=== PATIENT | male | born 1935 | race Hispanic/Latino ===

== ENCOUNTER 2017-07-01 11:38 | Inpatient (IN) | payer MEDICARE, MEDICAID ==
[2017-07-01 12:33] LABS: PTT 29.9 SEC (22.9-36.1); Prothrombin Time 13.1 SEC (12.0-14.7)
[2017-07-01 12:44] LABS: #Lymphocytes 0.8 thou/uL (1.20-3.40); #Monocytes 0.5 thou/uL (0.11-0.59); #Neutrophils 4.5 thou/uL (1.40-6.50); %Basophils 0.4 % (0.0-1.0); %Eosinophils 0.7 % (0.0-10.0); %Lymphocytes 13.1 % (21.0-51.0); %Neutrophils 77.8 % (42.0-75.0); Band 30 % (5-11); Eosinophils 2 % (0-10); Hemoglobin 17.1 g/dL (14.0-18.0); Lymphocytes 16 % (21-51); MDiff Complete? YES; Mean Corpuscular HGB CONC 32.1 g/dL (32.0-36.0); Mean Corpuscular Hemoglobin 29.9 pg (27.0-31.0); Mean Corpuscular Volume 93.2 fl (80.0-94.0); Monocytes 8 % (0-10); Neutrophil 42 % (42-75); PLT Morphology Comment Appears Decreased; Platelet Count 107 thou/uL (130-400); RBC Distribution Width 12.8 % (11.5-14.5); Reactive Lymphocytes 2 % (0-10); Red Blood Cell (RBC) Count 5.74 mill/uL (4.70-6.10); Vacuoles SLIGHT; White Blood Cell (WBC) Count 5.8 thou/uL (4.8-10.8)
[2017-07-01 12:54] LABS: Troponin I Less than 0.010 ng/mL (< 0.028)
[2017-07-01 12:59] LABS: ALT (SGPT) 18 U/L (8-55); AST (SGOT) 34 U/L (5-34); Albumin 3.8 g/dL (3.4-4.8); Alkaline Phosphatase 70 U/L (40-150); Anion Gap 17 mmol/L (10-20); BUN (Urea Nitrogen) 12 mg/dL (8.4-25.7); Bilirubin, Total 0.5 mg/dL (0.2-1.2); CK (CPK) 137 U/L (30-200); Calc. Creatinine Clearance 0 mL/min (70-130); Carbon Dioxide 25 mmol/L (23-31); Chloride 100 mmol/L (98-107); Estimated GFR-MDRD 84; Globulin 3.2 g/dL (2.4-3.5); Glucose 161 mg/dL (83-110); Potassium 4.2 mmol/L (3.5-5.1); Sodium 138 mmol/L (136-145)
--- NOTE | 2017-07-01 13:33 | CT ---
CT OF CERVICAL SPINE PERFORMED WITHOUT CONTRAST ENHANCEMENT: HISTORY: Fell in shower with neck injury. FINDINGS: The vertebral bodies are normal in height. There is disk narrowing at C3-4, C4-5, and C5-6. There a re radiographic changes at DISH. The facets are in normal alignment. Posterior osteophytic changes at C5-6 are not associated with any significant canal narrowing. There is no CT evidence for fractur e. IMPRESSION: No CT evidence of fracture of the cervical spine. POS: [facility]
--- NOTE | 2017-07-01 13:34 | CT ---
CT BRAIN WITHOUT CONTRAST: HISTORY: Fall with confusion. Speech impediment. Possible new onset atrial fibrillation. FINDINGS: No evidence of acute infarct, hemorrhage, midline shift, or abnormal extraaxial fluid collections is seen. The ventricular size is appropriate, and the basilar cisterns are patent. The bony calvarium is intact. There is mucosal disease in the paranasal sinuses. IMPRESSION: No CT evidence of acute intracranial process. Findings were reported, over the telephone, to the ER physician, Dr. Preciado, at 1:25 p.m. CODE NELLY POS: [facility]
--- NOTE | 2017-07-01 14:33 | CT ---
CT CHEST AND ABDOMEN AND PELVIS AND THORACIC AND LUMBAR SPINE PERFORMED WITH INTRAVENOUS CONTRAST ENH ANCEMENT: HISTORY: The patient is status post fall with diffuse pain. FINDINGS: The lungs show bibasilar atelectatic change. No signs of pneumothorax. No rib fractures are identif ied. The thoracic aorta is normal in caliber with no signs of mediastinal hematoma. ABDOMEN: The liver, spleen, and pancreas regions appear unremarkable. The gallbladder is mildly dis tended. The right and left adrenal glands are normal. The right and left kidneys are normal in size . There are hypodensities involving both kidneys, most compatible with cysts. There is no significa nt periaortic or mesenteric adenopathy. No free fluid demonstrated. PELVIS: The bladder is normal in appearance. A left hip prosthesis is noted. No free fluid. Sigmo id diverticulosis is present. No signs of any fractures of the bony pelvic ring. THORACIC SPINE: Arthritic changes are noted without signs of any fracture. LUMBAR SPINE: Degenerative changes of the lumbar spine are present. No compression fractures. IMPRESSION: No acute abnormalities of the chest, abdomen, or pelvis. Other incidental findings as noted above. POS: [facility]
--- NOTE | 2017-07-01 14:51 | CT ---
CT ANGIOGRAM OF THE HEAD: CT ANGIOGRAM OF THE NECK: CT PERFUSION: HISTORY: Confusion. Possible stroke. Multiple falls. COMPARISON: None. TECHNIQUE: A CT angiogram of the head and neck are performed in the axial plane, and three-dimensional reformatt ed images are submitted for interpretation. CT perfusion imaging is performed in the axial plane. FINDINGS: The post contrast head CT demonstrates loss of fernandes white matter differentiation involving the left o ccipital temporal lobe, compatible with a left MCA distribution infarction. There is mild sulcal eff acement. Bilateral globes are intact. Retrobulbar fat is preserved. Symmetric attenuation of the optic nerve s and ocular rectus muscles. There is bilateral ethmoid air cell, left frontal sinus, and left maxillary sinus disease. Adequate mastoid air cell aeration. The aerodigestive tract is patent. No mucosal abnormality. There is mass effect upon the posterior right oral cavity due to medial deviation of the right carotid artery. Effacement of the left piriform sinus is likely due to benign apposition of the mucosa. Non-emergent characterization is warranted. Symmetric attenuation of the sternocleidomastoid muscles. There is bilateral parotid gland atrophy. There is bilateral parotid gland fatty replacement. There is symmetric attenuation of the submandib ular glands. There is an enlarged right level V lymph node, measuring 1.2 x 1.0 cm. The lymph node has a round ap pearance and there is loss of fatty hilum. A malignant lymph node cannot be excluded. The upper mediastinum is unremarkable. The visualized lung apices demonstrate chronic change. Cervical spine vertebral body height is maintained. There is no fracture. There is extensive osteop hyte formation throughout the cervical spine. Evaluation of the contents of the central spinal canal and neural foramina is limited by technique. CT ANGIOGRAM: The aortic arch has appropriate enhancement in luminal diameter. RIGHT CAROTID: The right carotid artery origin has appropriate enhancement and luminal diameter. Th e common carotid artery, carotid bifurcation, and internal carotid artery have appropriate enhancemen t and luminal diameter. LEFT CAROTID: The left carotid artery origin has appropriate enhancement and luminal diameter. The left common carotid artery, carotid bifurcation, and internal carotid artery have appropriate enhance ment and luminal diameter. Bilateral cervical vertebral bodies are patent throughout the course in the neck. Vertebral arteries are essentially co-dominant. CT ANGIOGRAM OF THE HEAD: The distal cervical and intracranial internal carotid arteries have symmet lacy enhancement and luminal diameter. There is symmetric enhancement and luminal diameter of the A1 and M1 segments. The proximal A2 segme nts are symmetric. There are decreased posterior left MCA segments at the level of the third and fou rth branch. The right MCA segments are unremarkable. POSTERIOR CIRCULATION: Limited evaluation of both PICA artery origins. Both vertebral body supply a normal caliber basilar artery. The left and right P1 segments have symmetric enhancement and lumina l diameter. CT PERFUSION: The mean transit time images are suboptimal. There is diffuse increased mean transit time of the cerebrum. there is decreased blood flow and blood volume in the left temporal occipital region, corresponding to the area of loss of fernandes white matter differentiation on the post contrast h ead CT. Given the presence of decreased blood volume, a completed infarct is favored. 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 The results of the study were given to Trish, the nurse in the ER, on 07/01/2017 at 2:06 p.m. CODE NELLY POS: [facility]
[2017-07-01] MEDS ORDERED: Aspirin 300 MG Suppository ONE (15:06)
[2017-07-01] MEDS ORDERED: Diltiazem 125 MG/25 ML ONE (15:25)
[2017-07-01] MEDS ORDERED: Diltiazem HCl 125 MG, Admixture Fee 1 EACH in Sodium Chloride 0.9% 100 ML IVPB SCH (15:45)
--- NOTE | 2017-07-01 16:03 | HP ---
PRIMARY CARE PHYSICIAN: Dr. Cr in [place], [place]. REASON FOR ADMISSION: Left MCA infarct, atrial fibrillation with rapid ventricular response. HISTORY OF PRESENT ILLNESS: An 85-year-old male with a history of hypertension, diabetes ty pe 2, and atrial fibrillation who was brought to emergency room for acute onset of altered mental sta tus. This patient was seen last normal as per paramedics at 09:20 a.m. Family member reports that he was in shower and after that he fell down and he injured his head with countertop and after that he becam e confused. Paramedics were called and they suspected stroke and that is why patient came to the ER via air ambulance at 11:40 a.m. At that time, stroke alert was initiated, but at the same time in the emergency room, another emergen cy was going on with cold blue and patient initially did not able to provide any history and there wa s history of missing lot of information and that is why trauma workup initiated. The patient had CT cervical spine, CT chest, abdomen, and pelvis which were unremarkable. CT brain was also unremarkabl e and subsequently CT brain perfusion study was done which showed left MCA territory infarct. During this period, patient was out of window period for tPA. Whenever result was obtained for left MCA in farct, patient was not a candidate for any TAYLOR procedure as per Dr. Herman. We still do not have any more information about whether patient is taking chronically anticoagulant t herapy or not. The patient's son was present when I saw this patient in the emergency room. At that time, the patient was having atrial fibrillation with RVR. Initially, he was given Cardizem bolus a nd after that rate was under control, but his heart rate was very labile in the emergency room. Patient was moving all 4 limbs. He initially drank liquids, but subsequently patient refusing to dri nk. He was having difficulty comprehending. He is Faroese-speaking only and that is also limiting e xamination. At this point, patient's Carlos coma score is 14. He appeared to be confused, though h e is moving all 4 limbs. REVIEW OF SYSTEMS: Unfortunately, patient is Faroese-speaking only and patient currently confused an d that is why I tried to review all review of systems with him, but unable to review because of disor ientation and confusion. ALLERGIES: No known drug allergies. CURRENT HOME MEDICATIONS: The patient does not have any medication with him at this point and robert t and family member does not know the name of medication, so unable to review at this point. PAST MEDICAL HISTORY: Atrial fibrillation, diabetes type 2, hypertension, dyslipidemia. PAST SURGICAL HISTORY: History of right hip replacement. PAST PSYCHIATRIC HISTORY: Reviewed and negative. SOCIAL HISTORY: Patient is and lives at home with . No history of smoking, but he drink s alcohol socially. He denies any other illicit drug abuse. FAMILY HISTORY: No strong family history of premature coronary artery disease, stroke or cancer. ALLERGIES: No known drug allergies. EMERGENCY ROOM COURSE: Patient is given Cardizem bolus and Cardizem drip was started, aspirin 324 mg given. PHYSICAL EXAMINATION: VITAL SIGNS: Currently, blood pressure 203/151 and after that Cardizem bolus given and blood pressur e dropped to 179/97, pulse 110-120 irregular, respiratory rate 20, saturation 96% on room air, temper ature 97.8, weight 86.1 kilograms. GENERAL: The patient is currently awake. Follows only simple commands, but appears confused, no obv ious acute distress. HEAD: Normocephalic, atraumatic. EYES: Pupils round, reactive to light. Extraocular muscle intact. ENT: Oropharynx within normal limits. Moist mucous membranes. No oral lesions. No pharyngeal eryt macrina, no exudate. Patient has 1 cm mild laceration over right ear. NECK: Supple. Range of motion is normal. No meningeal signs of irritation, no JVD, no thyromegaly, no carotid bruit. LUNGS: Clear to auscultation without any rhonchi or rales. CARDIAC: S1, S2 irregularly irregular. No murmur elicited, no gallop, no rub. ABDOMEN: Soft, bowel sounds present, nontender, nondistended. No organomegaly, no mass, no suprapub ic tenderness. BACK: Examination unremarkable, no CVA tenderness. EXTREMITIES: Upper extremity: Patient is moving spontaneously all 4 limbs. Lower extremity; patien mukesh is moving all four limbs. No edema, good peripheral pulsation. SKIN: No skin rash. HEMATOLOGICAL SYSTEM: No lymphadenopathy. NEUROLOGIC: The patient is grossly moving all four limbs, but he appears disoriented and confused. He does not follow all the commands consistently and it is very difficult to perform neurological exa mination, but I think this patient has comprehension problem, but he does not have any focal motor we akness. IMAGING DATA AND SIGNIFICANT LABORATORY DATA: 1. EKG showing atrial fibrillation with rapid ventricular response, nonspecific ST-T changes. 2. CBC: WBC 5.8, hemoglobin 17.1, MCV 93.2, platelet 107, INR 1.0. 3. BMP: Sodium 138, potassium 4.2, chloride 100, carbon dioxide 25, anion gap 17, BUN 12, creatinin e 0.87, glucose 161, calcium 9.0, lactic acid 2.3. 4. LFT: AST 34, ALT 18, alkaline phosphatase 70, albumin 3.8, CK 137, CK-MB 3.0, troponin I less th an 0.010, BNP 68.9. 5. CT brain perfusion study showing left MCA distribution infarction in the left temporal occipital region. 6. CT brain based on my review, no acute intracranial process. 7. CT cervical spine based on my review, no CT evidence of fracture or dislocation. 8. CT chest, abdomen, and pelvis showing bibasilar atelectasis, gallbladder mildly distended, renal cyst, arthritic changes of thoracic and lumbar spine. ASSESSMENT AND PLAN/IMPRESSION: 1. 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 Patient is at high risk for stroke from atrial fibrillation because of his history of hype rtension, diabetes, and his age. At this point, patient will be admitted to stroke floor. Entire [facility] team will be consulted. Neurology will be consulted. Patient will need aspirin 325 mg p.o. torrie ly or 300 mg rectally. We will also continue with Lovenox 1 mg per kg for atrial fibrillation. For stroke workup, we will do MRI brain and echocardiography. We will check lipid profile, homocysteine, urine drug screen. We will start Lipitor 40 mg p.o. at bedtime. We will monitor on stroke floor an d we will consult rehabilitation for inpatient rehabilitation. PT, OT, speech will be consulted. 2. Atrial fibrillation with rapid ventricular response. We will start Cardizem drip at 5 mg per bunny r. We will obtain echocardiography. We will do serial cardiac enzymes to rule out acute coronary sy ndrome. Cardiology will be consulted. We will continue with Lovenox 1 mg per kg subcutaneous twice daily. 3. Hypertensive urgency. We will use hydralazine and labetalol p.r.n. basis for blood pressure cont rol. We will obtain patient's home medication and resume patient's home medication. 4. Thrombocytopenia. We will monitor platelet count. 5. Diabetes type 2. We will continue with Accu-Chek a.c. and at bedtime and insulin as per sliding scale per protocol. Diabetic diet will be given. 6. Dyslipidemia. Check lipid profile and start Lipitor 40 mg p.o. at bedtime. 7. Deep venous thrombosis prophylaxis. Patient is already on full dose of Lovenox therapy. 8. Gastrointestinal prophylaxis. Pepcid 20 mg IV b.i.d. 9. Code status: The patient is FULL CODE. The patient's is surrogate decision maker. Disposition plan based on clinical course. We are expecting patient's stay in the hospital more than 2 midnights. Plan of care discussed with the patient and family member at bedside in the emergency room.
[2017-07-01] MEDS ORDERED: ISOVUE-370 76%-LOCM 1 ML ONE (16:56)
[2017-07-01] MEDS ORDERED: Mag-Al 1200 mg/1200 mg/30 ML UDCUP PO PRN (17:23)
[2017-07-01] MEDS ORDERED: HYDROcodone/Acetaminophen 5/325 mg Tablet PO PRN (17:23)
[2017-07-01] MEDS ORDERED: Dextrose 50% Abboject 50 ML SYRINGE SLOW IVP PRN (17:23)
[2017-07-01] MEDS ORDERED: Loratadine 10 MG TAB PO PRN (17:23)
[2017-07-01] MEDS ORDERED: Milk Of Magnesia 30 ML UDCUP PO PRN (17:23)
[2017-07-01] MEDS ORDERED: Senokot 8.6 MG TAB PO PRN (17:23)
[2017-07-01] MEDS ORDERED: Sodium Chloride 0.65% Nasal 44 ML BOT EA NARE PRN (17:23)
[2017-07-01] MEDS ORDERED: HumaLOG 300 UNITS/3 ML VIAL SC PRN ×2 (17:23)
[2017-07-01] MEDS ORDERED: Nitroglycerin 0.4 MG TAB (25 Tab Bottle) SL PRN (17:23)
[2017-07-01] MEDS ORDERED: Loperamide HCl 2 MG CAP PO PRN (17:23)
[2017-07-01] MEDS ORDERED: Ondansetron HCl/PF 4 MG/2 ML Vial IVP PRN (17:23)
[2017-07-01] MEDS ORDERED: hydrALAZINE 20 MG/ML VIAL SLOW IVP PRN (17:23)
[2017-07-01] MEDS ORDERED: Acetaminophen 325 MG TAB PO PRN (17:23)
[2017-07-01] MEDS ORDERED: Eucerin (Mineral Oil/Petrolatum,White) 30 gm Jar TOP PRN (17:23)
[2017-07-01] MEDS ORDERED: Zolpidem Tartrate 5 MG TAB PO PRN (17:23)
[2017-07-01] MEDS ORDERED: Ondansetron ODT 4 MG TAB PO PRN (17:23)
[2017-07-01] MEDS ORDERED: Dextrose 5% in Water 1,000 ML IV PRN (17:23)
[2017-07-01] MEDS ORDERED: Artificial Tears 18 DROP/0.9 ML EA EYE PRN (17:23)
[2017-07-01] MEDS ORDERED: Diltiazem 125 MG in Sodium Chloride 0.9% 100 ML IVPB SCH (17:23)
[2017-07-01] MEDS ORDERED: Labetalol HCl 100 MG/20 ML VIAL SLOW IVP PRN (17:23)
[2017-07-01] MEDS ORDERED: Chloraseptic Spray 180 ml Bottle PO PRN (17:23)
[2017-07-01 17:25] VITALS: BMI 27.1
[2017-07-01] MEDS ORDERED: Atorvastatin Calcium 40 MG TAB PO SCH (21:00)
[2017-07-01] MEDS: Famotidine/PF 20 mg/2ml Vial SLOW IVP SCH (21:14)
[2017-07-01] MEDS: Enoxaparin Sodium 80 MG/0.8 ML SYRINGE SC SCH (22:33)
[2017-07-02 05:51] LABS: #Monocytes 0.7 thou/uL (0.11-0.59); %Eosinophils 0.1 % (0.0-10.0); %Lymphocytes 12.3 % (21.0-51.0); %Monocytes 8.9 % (0.0-10.0); %Neutrophils 78.6 % (42.0-75.0); Hemoglobin 16.8 g/dL (14.0-18.0); INR-International Normal Ratio 1.1; Mean Corpuscular HGB CONC 32.7 g/dL (32.0-36.0); Mean Corpuscular Hemoglobin 30.2 pg (27.0-31.0); Mean Corpuscular Volume 92.1 fl (80.0-94.0); Mean Platelet Volume 9.4 fL (7.4-10.4); Platelet Count 101 thou/uL (130-400); Prothrombin Time 14.1 SEC (12.0-14.7); RBC Distribution Width 12.6 % (11.5-14.5); Red Blood Cell (RBC) Count 5.59 mill/uL (4.70-6.10); White Blood Cell (WBC) Count 7.7 thou/uL (4.8-10.8)
[2017-07-02 05:55] LABS: ALT (SGPT) 14 U/L (8-55); AST (SGOT) 24 U/L (5-34); Albumin 3.4 g/dL (3.4-4.8); Alkaline Phosphatase 61 U/L (40-150); Anion Gap 18 mmol/L (10-20); BUN (Urea Nitrogen) 12 mg/dL (8.4-25.7); Bilirubin, Total 0.6 mg/dL (0.2-1.2); Calc. Creatinine Clearance 97 mL/min (70-130); Carbon Dioxide 22 mmol/L (23-31); Cardiac Risk 3.7 (Less than 4.5); Chloride 101 mmol/L (98-107); Cholesterol 165 mg/dl (< 200 Desired); Estimated GFR-MDRD Greater than 90; Globulin 3.1 g/dL (2.4-3.5); Glucose 138 mg/dL (83-110); HDL Cholesterol 45 mg/dL (>60 Neg Risk); LDL Cholesterol, Calculated 88 mg/dL; Potassium 3.4 mmol/L (3.5-5.1); Protein, Total 6.5 g/dL (5.8-8.1); Sodium 138 mmol/L (136-145); Triglycerides 161 mg/dL (Less than 150)
[2017-07-02 06:13] LABS: Syphilis Antibody Nonreactive (Nonreactive); Syphilis Antibody Index 0.05 S/CO (<1.00 Non-Reactive)
[2017-07-02] MEDS ORDERED: Potassium Chloride 20 MEQ TAB PO SCH (07:00)
[2017-07-02] MEDS: Finasteride 5 MG TAB PO SCH (08:52)
[2017-07-02] MEDS: metFORMIN 500 MG TAB PO SCH ×2 (08:52→21:41)
[2017-07-02] MEDS: Gabapentin 100 MG CAP PO SCH ×3 (08:52→21:26)
[2017-07-02] MEDS: Lisinopril 5 MG TAB PO SCH (08:52)
[2017-07-02] MEDS: Enoxaparin Sodium 80 MG/0.8 ML SYRINGE SC SCH (08:52)
[2017-07-02] MEDS: Tamsulosin HCl 0.4 MG CAP PO SCH (08:52)
[2017-07-02] MEDS: Glimepiride 2 MG TAB PO SCH (08:52)
[2017-07-02] MEDS: Famotidine/PF 20 mg/2ml Vial SLOW IVP SCH ×2 (08:53→21:26)
[2017-07-02] MEDS ORDERED: Atenolol 25 MG TAB PO SCH (09:00)
[2017-07-02] MEDS ORDERED: Calcium Carbonate 500 MG ChewTAB PO PRN (09:00)
[2017-07-02] MEDS ORDERED: FLU VACC TS2017-18 (>65YR) 0.5 ML SYRINGE IM ONE (09:00)
[2017-07-02] MEDS ORDERED: Aspirin 300 MG Suppository PR SCH (09:00)
[2017-07-02] MEDS ORDERED: Aspirin 325 MG TAB PO SCH (09:00)
--- NOTE | 2017-07-02 10:41 | MRI ---
MRI BRAIN WITHOUT CONTRAST: HISTORY: CVA. FINDINGS: There is restricted diffusion in the left posterior [id number]-xpdejcoxa region, in the MCA te rritory, consistent with an acute infarction. The ventricular size is appropriate, and the basilar c isterns are patent. No hemorrhage, midline shift, or abnormal extraaxial fluid collections are seen. There is mucosal disease in the paranasal sinuses. IMPRESSION: Acute left middle cerebral artery infarction. POS: [facility]
--- NOTE | 2017-07-02 10:55 | PDOC.PN ---
- Subjective Encounter Start Date: 07/02/17 Encounter Start Time: 07:15 -: old records requested/rev Patient seen and examined. No new complaints. No overnight events pt has word difficulty word finding - Objective Resuscitation Status: Resuscitation Status FULL:Full Resuscitation MAR Reviewed: Yes Vital Signs & Weight: Vital Signs (12 hours) Temp Pulse Resp BP Pulse Ox 07/02/17 08:52 90 07/02/17 08:51 90 07/02/17 07:30 97.6 F 93 18 147/99 H 93 L 07/02/17 04:00 97.5 F L 90 16 160/101 H 96 07/02/17 00:00 98.4 F 93 14 151/100 H 95 Weight Weight 189 lb I&O: 07/01/17 07/02/17 07/03/17 06:59 06:59 06:59 Intake Total 130 Balance 130 Result Diagrams: 07/02/17 04:47 07/02/17 04:47 Additional Labs: Accuchecks 07/02/17 07/01/17 04:47 21:54 POC Glucose 129 H 110 Radiology Reviewed by me: Yes (MRI- left MCA CVA) EKG Reviewed by me: Yes (afib) Phys Exam - Physical Examination Constitutional: NAD HEENT: PERRLA, moist MMs, sclera anicteric Neck: no JVD, supple Respiratory: no wheezing, no rales, no rhonchi Cardiovascular: no significant murmur, irregular Gastrointestinal: soft, non-tender, no distention, positive bowel sounds Musculoskeletal: no edema, pulses present Neurological: non-focal, normal sensation speech problem Psychiatric: normal affect, A&O x 3 Skin: no rash, normal turgor Dx/Plan (1) Acute ischemic left middle cerebral artery (MCA) stroke Code(s): I63.512 - CEREB INFRC D/T UNSP OCCLS OR STENOS OF LEFT MID CEREB ART Status: Acute (2) Atrial fibrillation with RVR Code(s): I48.91 - UNSPECIFIED ATRIAL FIBRILLATION Status: Acute Comment: rate controlled (3) Hypokalemia Code(s): E87.6 - HYPOKALEMIA Status: Acute (4) BPH (benign prostatic hyperplasia) Code(s): N40.0 - BENIGN PROSTATIC HYPERPLASIA WITHOUT LOWER URINRY TRACT SYMP Status: Chronic (5) Diabetes type 2, controlled Code(s): E11.9 - TYPE 2 DIABETES MELLITUS WITHOUT COMPLICATIONS Status: Chronic (6) Dyslipidemia Code(s): E78.5 - HYPERLIPIDEMIA, UNSPECIFIED Status: Chronic (7) GERD (gastroesophageal reflux disease) Code(s): K21.9 - GASTRO-ESOPHAGEAL REFLUX DISEASE WITHOUT ESOPHAGITIS Status: Chronic (8) Hypertension Code(s): I10 - ESSENTIAL (PRIMARY) HYPERTENSION Status: Chronic (9) Hypertensive urgency Code(s): I16.0 - HYPERTENSIVE URGENCY Status: Resolved - Plan cont current plan of care, plan discussed w/ family, PT/OT, speech therapy * continue cardizem drip for rate control * continue aspirin, lovenox * restart selected home medication * medication reviewed as below * symptomatic treatment * stroke team. Review of Systems - Review of Systems Constitutional: negative: fever, chills, sweats, weakness, malaise, other Eyes: negative: Pain, Vision Change, Conjunctivae Inflammation, Eyelid Inflammation, Redness, Other ENT: negative: Ear Pain, Ear Discharge, Nose Pain, Nose Discharge, Nose Congestion, Mouth Pain, Mouth Swelling, Throat Pain, Throat Swelling, Other Respiratory: negative: Cough, Dry, Shortness of Breath, Hemoptysis, SOB with Excertion, Pleuritic Pain, Sputum, Wheezing Cardiovascular: negative: chest pain, palpitations, orthopnea, paroxysmal nocturnal dyspnea, edema, light headedness, other Gastrointestinal: negative: Nausea, Vomiting, Abdominal Pain, Diarrhea, Constipation, Melena, Hematochezia, Other Genitourinary: negative: Dysuria, Frequency, Incontinence, Hematuria, Retention , Other Musculoskeletal: negative: Neck Pain, Shoulder Pain, Arm Pain, Back Pain, Hand Pain, Leg Pain, Foot Pain, Other Skin: negative: Rash, Lesions, Sreedhar, Bruising, Other Neurological: Change in Speech. negative: Weakness, Numbness, Incoordination, Confusion, Seizures, Other - Medications/Allergies Allergies/Adverse Reactions: Allergies Allergy/AdvReac Type Severity Reaction Status Date / Time No Known Allergies Allergy Unverified 07/01/17 15:30 Medications: Current Medications Acetaminophen (Tylenol) 650 mg PO Q4H PRN PRN Reason: Headache/Fever or Pain Hydrocodone Bitart/Acetaminophen ([place] 5/325) 1 tab PO Q4H PRN PRN Reason: Moderate Pain (4-6) Al Hydroxide/Mg Hydroxide (Maalox) 30 ml PO Q6H PRN PRN Reason: Heartburn or Indigestion Artificial Tears (Tears Naturale) 0 drop EA EYE PRN PRN PRN Reason: Dry Eyes Aspirin (Aspirin) 300 mg MI DAILY [facility] Last Admin: 07/02/17 08:53 Dose: Not Given Aspirin (Aspirin) 325 mg PO DAILY [facility] Last Admin: 07/02/17 08:52 Dose: 325 mg Atenolol (Tenormin) 25 mg PO DAILY [facility] Last Admin: 07/02/17 08:51 Dose: 25 mg Calcium Carbonate (Tums) 1,000 mg PO [facility] PRN PRN Reason: HEARTBURN OR INDIGESTION Dextrose/Water (Dextrose 50%) 25 gm SLOW IVP PRN PRN PRN Reason: Hypoglycemia Enoxaparin Sodium (Lovenox) 80 mg SC 0900,2100 [facility] Last Admin: 07/02/17 08:52 Dose: 80 mg Famotidine (Pepcid) 20 mg SLOW IVP Q12HR [facility] Last Admin: 07/02/17 08:53 Dose: 20 mg Finasteride (Proscar) 5 mg PO DAILY [facility] Last Admin: 07/02/17 08:52 Dose: 5 mg Gabapentin (Neurontin) 100 mg PO TID [facility] Last Admin: 07/02/17 08:52 Dose: 100 mg Glimepiride (Amaryl) 2 mg PO QAM[facility] Last Admin: 07/02/17 08:52 Dose: 2 mg Glucagon (Glucagon) 1 mg IM PRN PRN PRN Reason: Hypoglycemia Guaifenesin (Robitussin Sf) 200 mg PO Q4H PRN PRN Reason: Cough Hydralazine HCl (Apresoline) 10 mg SLOW IVP Q4H PRN PRN Reason: BP > 220/110 Dextrose/Water (D5w) 1,000 mls @ 0 mls/hr IV .Q0M PRN; As Directed PRN Reason: Hypoglycemia Diltiazem HCl 125 mg/ Sodium (Chloride) 125 mls @ 5 mls/hr IVPB INF BLAKE; 5 MG/ HR PRN Reason: Protocol Insulin Human Lispro (Humalog) 0 units SC .MODERATE SLIDING SC PRN PRN Reason: Moderate Correctional Scale Insulin Human Lispro (Humalog) 0 units SC .BEDTIME SLIDING SC PRN PRN Reason: Bedtime Correctional Scale Labetalol HCl (Normodyne) 20 mg SLOW IVP Q1H PRN PRN Reason: BP > 220/110 Lisinopril (Zestril) 5 mg PO DAILY [facility] Last Admin: 07/02/17 08:52 Dose: 5 mg Loperamide HCl (Imodium) 2 mg PO PRN PRN PRN Reason: Diarrhea/Loose Stools Loratadine (Claritin) 10 mg PO DAILYPRN PRN PRN Reason: Sinus Symptoms Magnesium Hydroxide (Milk Of Magnesium) 30 ml PO DAILYPRN PRN PRN Reason: Constipation Metformin HCl (Glucophage) 1,000 mg PO BID [facility] Last Admin: 07/02/17 08:52 Dose: 1,000 mg Mineral Oil/White Petrolatum (Eucerin Cream) 0 gm TOP BIDPRN PRN PRN Reason: Dry Skin Nitroglycerin (Nitrostat) 0.4 mg SL Q5MIN PRN PRN Reason: Chest Pain Ondansetron HCl (Zofran Odt) 4 mg PO Q6H PRN PRN Reason: Nausea/Vomiting Ondansetron HCl (Zofran) 4 mg IVP Q6H PRN PRN Reason: Nausea/Vomiting (Dapagliflozin Propanediol [Farxiga ] 10 Mg) Hm Med 0 each PO QAM [facility] Phenol (Chloraseptic [place] 180 Ml Bot) 0 ml PO PRN PRN PRN Reason: Sore Throat Rosuvastatin Calcium (Crestor) 10 mg PO DAILY [facility] Last Admin: 07/02/17 08:52 Dose: 10 mg Senna (Senokot) 2 tab PO HSPRN PRN PRN Reason: Constipation Sodium Chloride (Glynn Nasal [place] 0.65%) 0 ml EA NARE QIDPRN PRN PRN Reason: Nasal Congestion Tamsulosin HCl (Flomax) 0.4 mg PO DAILY [facility] Last Admin: 07/02/17 08:52 Dose: 0.4 mg Zolpidem Tartrate (Ambien) 5 mg PO HSPRN PRN PRN Reason: Insomnia
--- NOTE | 2017-07-02 12:10 | CON ---
DATE OF CONSULTATION: 07/02/2017 CONSULTING PHYSICIAN: Hospitalist Service. IMPRESSION: 1. 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 2. History of atrial fibrillation. 3. History of hyperlipidemia. 4. Diabetes. PLAN: 1. Consult Cardiology as to management of atrial fibrillation. 2. Anticoagulation of their choice. Mr. Ornelas is an elderly gentleman with the above noted medical problems. He presented with difficu lty speaking. His MRI of the brain revealed an acute area of ischemic change in the posterior divisi on of the left middle cerebral artery territory. He has no past history of TIA. He is uncertain as to whether he is compliant with his medication. 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 His CTA did not reveal any evidence of stenosis of the carotid arteries. His laboratory studies w ere otherwise unremarkable. PAST MEDICAL HISTORY: As listed above. ALLERGIES: None. SOCIAL HISTORY: No tobacco or alcohol use. FAMILY HISTORY: Noncontributory. REVIEW OF SYSTEMS: Unobtainable due to his language difficulties. PHYSICAL EXAMINATION: GENERAL: He is a well-nourished elderly gentleman sitting in bed, in no distress. VITAL SIGNS: Blood pressure 147/99, pulse 93, respirations 18, and temperature 97.6. HEENT: Pupils equal and reactive. Conjunctivae clear. Oropharynx clear. EXTREMITIES: No cyanosis, clubbing, or edema. NEUROLOGIC: He was alert, but had difficulty comprehending simple commands. He had very limited trish bal output. His face appeared to be symmetric. He had good regional extension service specialist strength bilaterally. There was no fix or drift. Sensation was grossly intact. Gait was not tested. No abnormal movements were seen. EKG shows a sinus rhythm. SUMMARY: Elderly man with a history of atrial fibrillation with the area of infarct is fairly common , only involved in a cardioembolic event. His echocardiogram is pending. I would suggest Cardiology weigh in on the case. I would be happy to follow in his care.
[2017-07-02] MEDS ORDERED: Enoxaparin Sodium 80 MG/0.8 ML SYRINGE SC SCH (20:30)
[2017-07-02] MEDS ORDERED: Apixaban 5 MG TAB PO SCH (21:00)
--- NOTE | 2017-07-03 00:16 | CON ---
DATE OF CONSULTATION: 07/02/2017 HISTORY OF PRESENT ILLNESS: Mr. Ornelas is an 85-year-old gentleman with a history of atrial fibrill ation, who had an embolic stroke. Mr. Ornelas has a long history of atrial fibrillation according to his family. He said he was on blo od thinners previously, but for unclear reasons he was taken off the blood thinner. Family does nallely mber that he had quite a bit of bruising. The patient was admitted to the hospital on this occasion with sudden onset of altered mental status. It was noted that he had an MRI of his brain, which revealed acute ischemia in the posterior divisi on of the left middle cerebral artery territory. The patient is recovering well fortunately. PAST MEDICAL HISTORY: Atrial fibrillation. MEDICATIONS: He was on aspirin, he was not on any other blood thinners, also on lisinopril. FAMILY HISTORY: Noncontributory. REVIEW OF SYSTEMS: Per chart, initially unobtainable due to language difficulties. The family indic ates he had been doing well prior to this episode. MEDICATIONS: He was taken; 1. Rosuvastatin. 2. Gabapentin. 3. Omeprazole. 4. Glimepiride. 5. Atenolol. 6. Tamsulosin. 7. Lisinopril. PHYSICAL EXAMINATION: GENERAL: This is a pleasant elderly gentleman, in no distress, feels much better now. He is moving all extremities. VITAL SIGNS: Blood pressure 116/74, pulse 88 and irregular. LUNGS: Clear. CARDIOVASCULAR: Irregularly irregular. ABDOMEN: Soft, nontender. EXTREMITIES: No clubbing, no cyanosis. There is no edema. SKIN: Warm and dry. PSYCHIATRIC: Family says he is answering questions appropriately. IMAGING: EKG reveals atrial fibrillation. Echocardiogram showed normal left ventricular function. ASSESSMENT: 1. 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 2. Diabetes. 3. Hypertension. PLAN: 1. Stop Atenolol. 2. Changed to Cardizem; it seems to control his heart rate better, CD 180 mg a day. 3. Stop aspirin. 4. Transition from Lovenox to Eliquis 5 mg twice a day. 5. From my standpoint, could be released home tomorrow to see me in the office in 3-4 weeks. Also, needs to follow up with his primary care physician.
--- NOTE | 2017-07-03 09:26 | PDOC.PN ---
- Subjective Encounter Start Date: 07/03/17 Encounter Start Time: 06:10 Patient seen and examined. No new complaints. No overnight events - Objective Resuscitation Status: Resuscitation Status FULL:Full Resuscitation MAR Reviewed: Yes Vital Signs & Weight: Vital Signs (12 hours) Temp Pulse Resp BP Pulse Ox 07/03/17 07:35 97.7 F 82 16 133/79 95 07/03/17 04:59 96.3 F L 80 18 119/72 93 L 07/03/17 00:58 96.1 F L 78 20 109/74 97 Weight Weight 186 lb 3.2 oz I&O: 07/02/17 07/03/17 07/04/17 06:59 06:59 06:59 Intake Total 130 50 Balance 130 50 Result Diagrams: 07/02/17 04:47 07/02/17 04:47 Additional Labs: Accuchecks 07/03/17 07/02/17 05:55 20:42 POC Glucose 130 H 177 H Radiology Reviewed by me: Yes (echo-normal ef) EKG Reviewed by me: Yes (afib) Phys Exam - Physical Examination Constitutional: NAD HEENT: PERRLA, moist MMs, sclera anicteric Neck: no JVD, supple Respiratory: no wheezing, no rales, no rhonchi Cardiovascular: no significant murmur, no rub, irregular Gastrointestinal: soft, non-tender, no distention, positive bowel sounds Musculoskeletal: no edema, pulses present Neurological: non-focal, normal sensation, moves all 4 limbs expressive aphasia Lymphatic: no nodes Psychiatric: normal affect, A&O x 3 Skin: no rash, normal turgor Dx/Plan (1) Acute ischemic left middle cerebral artery (MCA) stroke Code(s): I63.512 - CEREB INFRC D/T UNSP OCCLS OR STENOS OF LEFT MID CEREB ART Status: Acute (2) Atrial fibrillation with RVR Code(s): I48.91 - UNSPECIFIED ATRIAL FIBRILLATION Status: Acute Comment: rate controlled (3) Hypokalemia Code(s): E87.6 - HYPOKALEMIA Status: Acute (4) BPH (benign prostatic hyperplasia) Code(s): N40.0 - BENIGN PROSTATIC HYPERPLASIA WITHOUT LOWER URINRY TRACT SYMP Status: Chronic (5) Diabetes type 2, controlled Code(s): E11.9 - TYPE 2 DIABETES MELLITUS WITHOUT COMPLICATIONS Status: Chronic (6) Dyslipidemia Code(s): E78.5 - HYPERLIPIDEMIA, UNSPECIFIED Status: Chronic (7) GERD (gastroesophageal reflux disease) Code(s): K21.9 - GASTRO-ESOPHAGEAL REFLUX DISEASE WITHOUT ESOPHAGITIS Status: Chronic (8) Hypertension Code(s): I10 - ESSENTIAL (PRIMARY) HYPERTENSION Status: Chronic (9) Hypertensive urgency Code(s): I16.0 - HYPERTENSIVE URGENCY Status: Resolved - Plan cont current plan of care, plan discussed w/ family, PT/OT, social group worker, speech therapy * start cardizem cd po today * dc cardizem drilp later today * family wants to dc to rehab * medication reviewed as below * symptomatic treatment * continue eliquis * rehab decision pending. Review of Systems - Review of Systems ENT: negative: Ear Pain, Ear Discharge, Nose Pain, Nose Discharge, Nose Congestion, Mouth Pain, Mouth Swelling, Throat Pain, Throat Swelling, Other Respiratory: negative: Cough, Dry, Shortness of Breath, Hemoptysis, SOB with Excertion, Pleuritic Pain, Sputum, Wheezing Cardiovascular: negative: chest pain, palpitations, orthopnea, paroxysmal nocturnal dyspnea, edema, light headedness, other Gastrointestinal: negative: Nausea, Vomiting, Abdominal Pain, Diarrhea, Constipation, Melena, Hematochezia, Other Genitourinary: negative: Dysuria, Frequency, Incontinence, Hematuria, Retention , Other Musculoskeletal: negative: Neck Pain, Shoulder Pain, Arm Pain, Back Pain, Hand Pain, Leg Pain, Foot Pain, Other Skin: negative: Rash, Lesions, Sreedhar, Bruising, Other Neurological: Change in Speech. negative: Weakness, Numbness, Incoordination, Confusion, Seizures, Other - Medications/Allergies Allergies/Adverse Reactions: Allergies Allergy/AdvReac Type Severity Reaction Status Date / Time No Known Allergies Allergy Unverified 07/01/17 15:30 Medications: Current Medications Acetaminophen (Tylenol) 650 mg PO Q4H PRN PRN Reason: Headache/Fever or Pain Hydrocodone Bitart/Acetaminophen ([place] 5/325) 1 tab PO Q4H PRN PRN Reason: Moderate Pain (4-6) Al Hydroxide/Mg Hydroxide (Maalox) 30 ml PO Q6H PRN PRN Reason: Heartburn or Indigestion Apixaban (Eliquis) 5 mg PO BID [facility] Artificial Tears (Tears Naturale) 0 drop EA EYE PRN PRN PRN Reason: Dry Eyes Calcium Carbonate (Tums) 1,000 mg PO PCHS PRN PRN Reason: HEARTBURN OR INDIGESTION Dextrose/Water (Dextrose 50%) 25 gm SLOW IVP PRN PRN PRN Reason: Hypoglycemia Diltiazem HCl (Cardizem Cd) 180 mg PO DAILY [facility] Famotidine (Pepcid) 20 mg SLOW IVP Q12HR [facility] Last Admin: 07/02/17 21:26 Dose: 20 mg Finasteride (Proscar) 5 mg PO DAILY [facility] Last Admin: 07/02/17 08:52 Dose: 5 mg Gabapentin (Neurontin) 100 mg PO TID [facility] Last Admin: 07/02/17 21:26 Dose: 100 mg Glimepiride (Amaryl) 2 mg PO QA-[facility] Last Admin: 07/02/17 08:52 Dose: 2 mg Glucagon (Glucagon) 1 mg IM PRN PRN PRN Reason: Hypoglycemia Guaifenesin (Robitussin Sf) 200 mg PO Q4H PRN PRN Reason: Cough Hydralazine HCl (Apresoline) 10 mg SLOW IVP Q4H PRN PRN Reason: BP > 220/110 Dextrose/Water (D5w) 1,000 mls @ 0 mls/hr IV .Q0M PRN; As Directed PRN Reason: Hypoglycemia Diltiazem HCl 125 mg/ Sodium (Chloride) 125 mls @ 5 mls/hr IVPB INF [facility]; 5 MG/ HR PRN Reason: Protocol Stop: 07/03/17 10:00 Last Admin: 07/02/17 11:33 Dose: 125 mls Insulin Human Lispro (Humalog) 0 units SC .MODERATE SLIDING SC PRN PRN Reason: Moderate Correctional Scale Insulin Human Lispro (Humalog) 0 units SC .BEDTIME SLIDING SC PRN PRN Reason: Bedtime Correctional Scale Labetalol HCl (Normodyne) 20 mg SLOW IVP Q1H PRN PRN Reason: BP > 220/110 Lisinopril (Zestril) 5 mg PO DAILY [facility] Last Admin: 07/02/17 08:52 Dose: 5 mg Loperamide HCl (Imodium) 2 mg PO PRN PRN PRN Reason: Diarrhea/Loose Stools Loratadine (Claritin) 10 mg PO DAILYPRN PRN PRN Reason: Sinus Symptoms Magnesium Hydroxide (Milk Of Magnesium) 30 ml PO DAILYPRN PRN PRN Reason: Constipation Metformin HCl (Glucophage) 1,000 mg PO BID [facility] Last Admin: 07/02/17 21:41 Dose: Not Given Mineral Oil/White Petrolatum (Eucerin Cream) 0 gm TOP BIDPRN PRN PRN Reason: Dry Skin Nitroglycerin (Nitrostat) 0.4 mg SL Q5MIN PRN PRN Reason: Chest Pain Ondansetron HCl (Zofran Odt) 4 mg PO Q6H PRN PRN Reason: Nausea/Vomiting Ondansetron HCl (Zofran) 4 mg IVP Q6H PRN PRN Reason: Nausea/Vomiting (Dapagliflozin Propanediol [Farxiga ] 10 Mg) Hm Med 0 each PO QAM [facility] Phenol (Chloraseptic [place] 180 Ml Bot) 0 ml PO PRN PRN PRN Reason: Sore Throat Rosuvastatin Calcium (Crestor) 10 mg PO DAILY [facility] Last Admin: 07/02/17 08:52 Dose: 10 mg Senna (Senokot) 2 tab PO HSPRN PRN PRN Reason: Constipation Sodium Chloride ([place] Nasal [place] 0.65%) 0 ml EA NARE QIDPRN PRN PRN Reason: Nasal Congestion Tamsulosin HCl (Flomax) 0.4 mg PO DAILY [facility] Last Admin: 07/02/17 08:52 Dose: 0.4 mg Zolpidem Tartrate (Ambien) 5 mg PO HSPRN PRN PRN Reason: Insomnia
[2017-07-03] MEDS: Lisinopril 5 MG TAB PO SCH (09:45)
[2017-07-03] MEDS: Gabapentin 100 MG CAP PO SCH ×3 (09:45→21:41)
[2017-07-03] MEDS: Finasteride 5 MG TAB PO SCH (09:46)
[2017-07-03] MEDS: Tamsulosin HCl 0.4 MG CAP PO SCH (09:46)
[2017-07-03] MEDS: metFORMIN 500 MG TAB PO SCH ×2 (09:46→21:41)
[2017-07-03] MEDS: Apixaban 5 MG TAB PO SCH ×2 (09:47→21:41)
[2017-07-03] MEDS: Glimepiride 2 MG TAB PO SCH (09:47)
[2017-07-03] MEDS: Famotidine/PF 20 mg/2ml Vial SLOW IVP SCH ×2 (09:47→21:41)
--- NOTE | 2017-07-03 09:49 | PDOC.CTH ---
Cardiology Progress Note - Subjective The pt seen and examined. No overnight events. No cardiac complaints. Per family, the pt has walked to bathroom with minimal assist. Waiting for Rehab replacement at this moment - Objective Vital Signs Temp Pulse Resp BP Pulse Ox 07/03/17 07:35 97.7 F 82 16 133/79 95 07/03/17 04:59 96.3 F L 80 18 119/72 93 L 07/03/17 00:58 96.1 F L 78 20 109/74 97 Weight 186 lb 3.2 oz 07/02/17 07/03/17 07/04/17 06:59 06:59 06:59 Intake Total 130 50 Balance 130 50 - Physical Examination General/Neuro: alert & oriented x3 Neck: no JVD present Lungs: CTA Heart: other: (irregular) Abdomen: soft Extremities: other: (No edemas) - Telemetry Telemetry Rhythm: Afib 80s - Labs Result Diagrams: 07/02/17 04:47 07/02/17 04:47 Troponin/CKMB CK-MB (CK-2) 3.0 ng/mL (0-6.6) 07/01/17 12:14 Troponin I Less than 0.010 ng/mL (< 0.028) 07/01/17 12:14 - Assessment/Plan 1. Acute ischemic left middle cerebral artery (MCA) stroke - affect to his speech 2. Afib with RVR - stable with Diltiazem IV; Diltizem was changed to PO 180mg daily from today; on Eliquis 5mg BID; cont. monitor on tele 3. HTN - stable with current medication 4. Dyslipidemia - on Statin 5. DM type 2 - stable with current medication; managed by PCP 6. BPH - managed by PCP MAR reviewed * From Cardiac standpoint, the pt is stable to tx to [facility] to home if he can tolerate with Diltiazem PO. The pt will f/u with Dr Elizalde's office within 3-4 wks. Review of Systems - Review of Systems Constitutional: reports: no symptoms reported EENTM: reports: no symptoms reported Respiratory: reports: no symptoms reported Cardiac (ROS): reports: no symptoms reported ABD/GI: reports: no symptoms reported : reports: no symptoms reported Musculoskeletal: reports: no symptoms reported Skin: reports: no symptoms reported Neurological: reports: no symptoms reported
[2017-07-03] MEDS: Diabetic Tussin 200 MG/10 ML UDCUP PO PRN (23:08)
[2017-07-04] MEDS: metFORMIN 500 MG TAB PO SCH ×2 (08:39→20:16)
[2017-07-04] MEDS: Gabapentin 100 MG CAP PO SCH ×3 (08:40→20:16)
[2017-07-04] MEDS: Finasteride 5 MG TAB PO SCH (08:40)
[2017-07-04] MEDS: Lisinopril 5 MG TAB PO SCH (08:40)
[2017-07-04] MEDS: Tamsulosin HCl 0.4 MG CAP PO SCH (08:41)
[2017-07-04] MEDS: Apixaban 5 MG TAB PO SCH ×2 (08:41→20:16)
[2017-07-04] MEDS: Glimepiride 2 MG TAB PO SCH (08:42)
--- NOTE | 2017-07-04 09:37 | PDOC.PN ---
- Subjective Encounter Start Date: 07/04/17 Encounter Start Time: 07:00 Patient seen and examined. No new complaints. No overnight events - Objective Resuscitation Status: Resuscitation Status FULL:Full Resuscitation MAR Reviewed: Yes Vital Signs & Weight: Vital Signs (12 hours) Temp Pulse Resp BP BP Pulse Ox 07/04/17 08:40 74 07/04/17 08:00 97.9 F 90 20 110/66 96 07/04/17 02:51 98.7 F 74 16 96/65 93 L 07/03/17 23:08 97.6 F 80 18 115/79 93 L Weight Weight 186 lb 3.2 oz I&O: 07/03/17 07/04/17 07/05/17 06:59 06:59 06:59 Intake Total 50 747 Balance 50 747 Result Diagrams: 07/02/17 04:47 07/02/17 04:47 Additional Labs: Accuchecks 07/04/17 07/03/17 07/03/17 05:47 20:40 17:05 POC Glucose 103 137 H 93 07/03/17 10:50 POC Glucose 193 H EKG Reviewed by me: Yes (afib) Phys Exam - Physical Examination Constitutional: NAD HEENT: PERRLA, moist MMs, sclera anicteric Neck: no JVD, supple Respiratory: no wheezing, no rales, no rhonchi Cardiovascular: no significant murmur, irregular Gastrointestinal: soft, non-tender, no distention, positive bowel sounds Musculoskeletal: no edema, pulses present Neurological: moves all 4 limbs Lymphatic: no nodes Psychiatric: normal affect Skin: no rash, normal turgor Dx/Plan (1) Acute ischemic left middle cerebral artery (MCA) stroke Code(s): I63.512 - CEREB INFRC D/T UNSP OCCLS OR STENOS OF LEFT MID CEREB ART Status: Acute Comment: suspected embolic (2) Atrial fibrillation with RVR Code(s): I48.91 - UNSPECIFIED ATRIAL FIBRILLATION Status: Acute Comment: rate controlled on cardizem cd and now on elliquis (3) Hypokalemia Code(s): E87.6 - HYPOKALEMIA Status: Resolved Comment: replaced and corrected (4) BPH (benign prostatic hyperplasia) Code(s): N40.0 - BENIGN PROSTATIC HYPERPLASIA WITHOUT LOWER URINRY TRACT SYMP Status: Chronic Comment: on flomax (5) Diabetes type 2, controlled Code(s): E11.9 - TYPE 2 DIABETES MELLITUS WITHOUT COMPLICATIONS Status: Chronic Comment: controlled (6) Dyslipidemia Code(s): E78.5 - HYPERLIPIDEMIA, UNSPECIFIED Status: Chronic Comment: on crestor (7) GERD (gastroesophageal reflux disease) Code(s): K21.9 - GASTRO-ESOPHAGEAL REFLUX DISEASE WITHOUT ESOPHAGITIS Status: Chronic Qualifiers: Esophagitis presence: without esophagitis Qualified Code(s): K21.9 - Gastro -esophageal reflux disease without esophagitis (8) Hypertension Code(s): I10 - ESSENTIAL (PRIMARY) HYPERTENSION Status: Chronic Comment: controlled (9) Hypertensive urgency Code(s): I16.0 - HYPERTENSIVE URGENCY Status: Resolved - Plan cont current plan of care, PT/OT, professor of social work, speech therapy * await rehab placement * medication reviewed as below * symptomatic treatment. Review of Systems - Review of Systems Constitutional: negative: fever, chills, sweats, weakness, malaise, other ENT: negative: Ear Pain, Ear Discharge, Nose Pain, Nose Discharge, Nose Congestion, Mouth Pain, Mouth Swelling, Throat Pain, Throat Swelling, Other Respiratory: negative: Cough, Dry, Shortness of Breath, Hemoptysis, SOB with Excertion, Pleuritic Pain, Sputum, Wheezing Cardiovascular: negative: chest pain, palpitations, orthopnea, paroxysmal nocturnal dyspnea, edema, light headedness, other Gastrointestinal: negative: Nausea, Vomiting, Abdominal Pain, Diarrhea, Constipation, Melena, Hematochezia, Other Genitourinary: negative: Dysuria, Frequency, Incontinence, Hematuria, Retention , Other Musculoskeletal: negative: Neck Pain, Shoulder Pain, Arm Pain, Back Pain, Hand Pain, Leg Pain, Foot Pain, Other Skin: negative: Rash, Lesions, Sreedhar, Bruising, Other Neurological: Change in Speech - Medications/Allergies Allergies/Adverse Reactions: Allergies Allergy/AdvReac Type Severity Reaction Status Date / Time No Known Allergies Allergy Unverified 07/01/17 15:30 Medications: Current Medications Acetaminophen (Tylenol) 650 mg PO Q4H PRN PRN Reason: Headache/Fever or Pain Hydrocodone Bitart/Acetaminophen ([place] 5/325) 1 tab PO Q4H PRN PRN Reason: Moderate Pain (4-6) Al Hydroxide/Mg Hydroxide (Maalox) 30 ml PO Q6H PRN PRN Reason: Heartburn or Indigestion Apixaban (Eliquis) 5 mg PO BID [facility] Last Admin: 07/04/17 08:41 Dose: 5 mg Artificial Tears (Tears Naturale) 0 drop EA EYE PRN PRN PRN Reason: Dry Eyes Calcium Carbonate (Tums) 1,000 mg PO PCHS PRN PRN Reason: HEARTBURN OR INDIGESTION Dextrose/Water (Dextrose 50%) 25 gm SLOW IVP PRN PRN PRN Reason: Hypoglycemia Diltiazem HCl (Cardizem Cd) 180 mg PO DAILY [facility] Last Admin: 07/04/17 08:42 Dose: 180 mg Famotidine (Pepcid) 20 mg SLOW IVP Q12HR [facility] Last Admin: 07/03/17 21:41 Dose: 20 mg Finasteride (Proscar) 5 mg PO DAILY [facility] Last Admin: 07/04/17 08:40 Dose: 5 mg Gabapentin (Neurontin) 100 mg PO TID [facility] Last Admin: 07/04/17 08:40 Dose: 100 mg Glimepiride (Amaryl) 2 mg PO QA-[facility] Last Admin: 07/04/17 08:42 Dose: 2 mg Glucagon (Glucagon) 1 mg IM PRN PRN PRN Reason: Hypoglycemia Guaifenesin (Robitussin Sf) 200 mg PO Q4H PRN PRN Reason: Cough Last Admin: 07/03/17 23:08 Dose: 200 mg Hydralazine HCl (Apresoline) 10 mg SLOW IVP Q4H PRN PRN Reason: BP > 220/110 Dextrose/Water (D5w) 1,000 mls @ 0 mls/hr IV .Q0M PRN; As Directed PRN Reason: Hypoglycemia Insulin Human Lispro (Humalog) 0 units SC .MODERATE SLIDING SC PRN PRN Reason: Moderate Correctional Scale Insulin Human Lispro (Humalog) 0 units SC .BEDTIME SLIDING SC PRN PRN Reason: Bedtime Correctional Scale Labetalol HCl (Normodyne) 20 mg SLOW IVP Q1H PRN PRN Reason: BP > 220/110 Lisinopril (Zestril) 5 mg PO DAILY [facility] Last Admin: 07/04/17 08:40 Dose: 5 mg Loperamide HCl (Imodium) 2 mg PO PRN PRN PRN Reason: Diarrhea/Loose Stools Loratadine (Claritin) 10 mg PO DAILYPRN PRN PRN Reason: Sinus Symptoms Magnesium Hydroxide (Milk Of Magnesium) 30 ml PO DAILYPRN PRN PRN Reason: Constipation Metformin HCl (Glucophage) 1,000 mg PO BID [facility] Last Admin: 07/04/17 08:39 Dose: 1,000 mg Mineral Oil/White Petrolatum (Eucerin Cream) 0 gm TOP BIDPRN PRN PRN Reason: Dry Skin Nitroglycerin (Nitrostat) 0.4 mg SL Q5MIN PRN PRN Reason: Chest Pain Ondansetron HCl (Zofran Odt) 4 mg PO Q6H PRN PRN Reason: Nausea/Vomiting Ondansetron HCl (Zofran) 4 mg IVP Q6H PRN PRN Reason: Nausea/Vomiting (Dapagliflozin Propanediol [Farxiga ] 10 Mg) Hm Med 0 each PO QAM [facility] Phenol (Chloraseptic [place] 180 Ml Bot) 0 ml PO PRN PRN PRN Reason: Sore Throat Rosuvastatin Calcium (Crestor) 10 mg PO DAILY [facility] Last Admin: 07/04/17 08:40 Dose: 10 mg Senna (Senokot) 2 tab PO HSPRN PRN PRN Reason: Constipation Last Admin: 07/03/17 21:41 Dose: 2 tab Sodium Chloride ([place] Nasal [place] 0.65%) 0 ml EA NARE QIDPRN PRN PRN Reason: Nasal Congestion Tamsulosin HCl (Flomax) 0.4 mg PO DAILY [facility] Last Admin: 07/04/17 08:41 Dose: 0.4 mg Zolpidem Tartrate (Ambien) 5 mg PO HSPRN PRN PRN Reason: Insomnia
[2017-07-04] MEDS: Famotidine/PF 20 mg/2ml Vial SLOW IVP SCH (19:23)
[2017-07-04] MEDS: Famotidine 20 MG TAB PO SCH (20:16)
[2017-07-05] MEDS: metFORMIN 500 MG TAB PO SCH (10:01)
--- NOTE | 2017-07-05 10:01 | PDOC.PN ---
- Subjective Encounter Start Date: 07/05/17 Encounter Start Time: 07:00 Patient seen and examined. No new complaints. No overnight events - Objective Resuscitation Status: Resuscitation Status FULL:Full Resuscitation MAR Reviewed: Yes Vital Signs & Weight: Vital Signs (12 hours) Temp Pulse Resp BP BP Pulse Ox 07/05/17 07:40 97.5 F L 85 16 139/84 94 L 07/05/17 03:50 98.4 F 74 18 106/60 96 07/05/17 00:31 98.7 F 76 20 130/85 98 Weight Weight 186 lb 3.2 oz I&O: 07/04/17 07/05/17 07/06/17 06:59 06:59 06:59 Intake Total 747 620 Balance 747 620 Result Diagrams: 07/02/17 04:47 07/02/17 04:47 Additional Labs: Accuchecks 07/05/17 07/04/17 07/04/17 05:28 20:44 17:40 POC Glucose 112 H 116 H 88 07/04/17 11:22 POC Glucose 135 H EKG Reviewed by me: Yes (afib) Phys Exam - Physical Examination Constitutional: NAD HEENT: PERRLA, moist MMs, sclera anicteric Neck: no JVD, supple Respiratory: no wheezing, no rales, no rhonchi Cardiovascular: no significant murmur, no rub, irregular Gastrointestinal: soft, non-tender, no distention, positive bowel sounds Musculoskeletal: no edema, pulses present Neurological: non-focal, normal sensation, moves all 4 limbs Lymphatic: no nodes Psychiatric: normal affect, A&O x 3 Deviation from normal: expressive and receptive aphasia Skin: no rash, normal turgor Dx/Plan (1) Acute ischemic left middle cerebral artery (MCA) stroke Code(s): I63.512 - CEREB INFRC D/T UNSP OCCLS OR STENOS OF LEFT MID CEREB ART Status: Acute Comment: suspected embolic (2) Atrial fibrillation with RVR Code(s): I48.91 - UNSPECIFIED ATRIAL FIBRILLATION Status: Acute Comment: rate controlled on cardizem cd and now on elliquis (3) Hypokalemia Code(s): E87.6 - HYPOKALEMIA Status: Resolved Comment: replaced and corrected (4) BPH (benign prostatic hyperplasia) Code(s): N40.0 - BENIGN PROSTATIC HYPERPLASIA WITHOUT LOWER URINRY TRACT SYMP Status: Chronic Comment: on flomax (5) Diabetes type 2, controlled Code(s): E11.9 - TYPE 2 DIABETES MELLITUS WITHOUT COMPLICATIONS Status: Chronic Comment: controlled (6) Dyslipidemia Code(s): E78.5 - HYPERLIPIDEMIA, UNSPECIFIED Status: Chronic Comment: on crestor (7) GERD (gastroesophageal reflux disease) Code(s): K21.9 - GASTRO-ESOPHAGEAL REFLUX DISEASE WITHOUT ESOPHAGITIS Status: Chronic Qualifiers: Esophagitis presence: without esophagitis Qualified Code(s): K21.9 - Gastro -esophageal reflux disease without esophagitis (8) Hypertension Code(s): I10 - ESSENTIAL (PRIMARY) HYPERTENSION Status: Chronic Comment: controlled (9) Hypertensive urgency Code(s): I16.0 - HYPERTENSIVE URGENCY Status: Resolved - Plan cont current plan of care, plan discussed w/ family, PT/OT, social problems specialist * family still insisting on inpt rehab * await rehab approval * medication reviewed as below * symptomatic treatment * discussed with family. Review of Systems - Review of Systems ENT: negative: Ear Pain, Ear Discharge, Nose Pain, Nose Discharge, Nose Congestion, Mouth Pain, Mouth Swelling, Throat Pain, Throat Swelling, Other Respiratory: negative: Cough, Dry, Shortness of Breath, Hemoptysis, SOB with Excertion, Pleuritic Pain, Sputum, Wheezing Cardiovascular: negative: chest pain, palpitations, orthopnea, paroxysmal nocturnal dyspnea, edema, light headedness, other Gastrointestinal: negative: Nausea, Vomiting, Abdominal Pain, Diarrhea, Constipation, Melena, Hematochezia, Other Genitourinary: negative: Dysuria, Frequency, Incontinence, Hematuria, Retention , Other Musculoskeletal: negative: Neck Pain, Shoulder Pain, Arm Pain, Back Pain, Hand Pain, Leg Pain, Foot Pain, Other Skin: negative: Rash, Lesions, Sreedhar, Bruising, Other Neurological: Change in Speech - Medications/Allergies Allergies/Adverse Reactions: Allergies Allergy/AdvReac Type Severity Reaction Status Date / Time No Known Allergies Allergy Unverified 07/01/17 15:30 Medications: Current Medications Acetaminophen (Tylenol) 650 mg PO Q4H PRN PRN Reason: Headache/Fever or Pain Hydrocodone Bitart/Acetaminophen ([place] 5/325) 1 tab PO Q4H PRN PRN Reason: Moderate Pain (4-6) Al Hydroxide/Mg Hydroxide (Maalox) 30 ml PO Q6H PRN PRN Reason: Heartburn or Indigestion Apixaban (Eliquis) 5 mg PO BID [facility] Last Admin: 07/04/17 20:16 Dose: 5 mg Artificial Tears (Tears Naturale) 0 drop EA EYE PRN PRN PRN Reason: Dry Eyes Calcium Carbonate (Tums) 1,000 mg PO PCHS PRN PRN Reason: HEARTBURN OR INDIGESTION Dextrose/Water (Dextrose 50%) 25 gm SLOW IVP PRN PRN PRN Reason: Hypoglycemia Diltiazem HCl (Cardizem Cd) 180 mg PO DAILY [facility] Last Admin: 07/04/17 08:42 Dose: 180 mg Famotidine (Pepcid) 20 mg PO BID [facility] Last Admin: 07/04/17 20:16 Dose: 20 mg Finasteride (Proscar) 5 mg PO DAILY [facility] Last Admin: 07/04/17 08:40 Dose: 5 mg Gabapentin (Neurontin) 100 mg PO TID [facility] Last Admin: 07/04/17 20:16 Dose: 100 mg Glimepiride (Amaryl) 2 mg PO QA[facility] Last Admin: 07/04/17 08:42 Dose: 2 mg Glucagon (Glucagon) 1 mg IM PRN PRN PRN Reason: Hypoglycemia Guaifenesin (Robitussin Sf) 200 mg PO Q4H PRN PRN Reason: Cough Last Admin: 07/03/17 23:08 Dose: 200 mg Hydralazine HCl (Apresoline) 10 mg SLOW IVP Q4H PRN PRN Reason: BP > 220/110 Dextrose/Water (D5w) 1,000 mls @ 0 mls/hr IV .Q0M PRN; As Directed PRN Reason: Hypoglycemia Insulin Human Lispro (Humalog) 0 units SC .MODERATE SLIDING SC PRN PRN Reason: Moderate Correctional Scale Insulin Human Lispro (Humalog) 0 units SC .BEDTIME SLIDING SC PRN PRN Reason: Bedtime Correctional Scale Labetalol HCl (Normodyne) 20 mg SLOW IVP Q1H PRN PRN Reason: BP > 220/110 Lisinopril (Zestril) 5 mg PO DAILY [facility] Last Admin: 07/04/17 08:40 Dose: 5 mg Loperamide HCl (Imodium) 2 mg PO PRN PRN PRN Reason: Diarrhea/Loose Stools Loratadine (Claritin) 10 mg PO DAILYPRN PRN PRN Reason: Sinus Symptoms Magnesium Hydroxide (Milk Of Magnesium) 30 ml PO DAILYPRN PRN PRN Reason: Constipation Metformin HCl (Glucophage) 1,000 mg PO BID [facility] Last Admin: 07/04/17 20:16 Dose: 1,000 mg Mineral Oil/White Petrolatum (Eucerin Cream) 0 gm TOP BIDPRN PRN PRN Reason: Dry Skin Nitroglycerin (Nitrostat) 0.4 mg SL Q5MIN PRN PRN Reason: Chest Pain Ondansetron HCl (Zofran Odt) 4 mg PO Q6H PRN PRN Reason: Nausea/Vomiting Ondansetron HCl (Zofran) 4 mg IVP Q6H PRN PRN Reason: Nausea/Vomiting (Dapagliflozin Propanediol [Farxiga ] 10 Mg) Med 0 each PO QAM [facility] Phenol (Chloraseptic Ava 180 Ml Bot) 0 ml PO PRN PRN PRN Reason: Sore Throat Rosuvastatin Calcium (Crestor) 10 mg PO DAILY [facility] Last Admin: 07/04/17 08:40 Dose: 10 mg Senna (Senokot) 2 tab PO HSPRN PRN PRN Reason: Constipation Last Admin: 07/03/17 21:41 Dose: 2 tab Sodium Chloride ([place] Nasal Ava 0.65%) 0 ml EA NARE QIDPRN PRN PRN Reason: Nasal Congestion Tamsulosin HCl (Flomax) 0.4 mg PO DAILY [facility] Last Admin: 07/04/17 08:41 Dose: 0.4 mg Zolpidem Tartrate (Ambien) 5 mg PO HSPRN PRN PRN Reason: Insomnia
[2017-07-05] MEDS: Lisinopril 5 MG TAB PO SCH (10:02)
[2017-07-05] MEDS: Tamsulosin HCl 0.4 MG CAP PO SCH (10:02)
[2017-07-05] MEDS: Gabapentin 100 MG CAP PO SCH ×2 (10:02→14:41)
[2017-07-05] MEDS: Famotidine 20 MG TAB PO SCH (10:02)
[2017-07-05] MEDS: Apixaban 5 MG TAB PO SCH (10:02)
[2017-07-05] MEDS: Glimepiride 2 MG TAB PO SCH (10:03)
[2017-07-05] MEDS: Finasteride 5 MG TAB PO SCH (10:03)
--- NOTE | 2017-07-05 14:25 | CT ---
CT ANGIOGRAM OF THE HEAD: CT ANGIOGRAM OF THE NECK: CT PERFUSION: HISTORY: Confusion. Possible stroke. Multiple falls. COMPARISON: None. TECHNIQUE: A CT angiogram of the head and neck are performed in the axial plane, and three-dimensional reformatt ed images are submitted for interpretation. CT perfusion imaging is performed in the axial plane. FINDINGS: The post contrast head CT demonstrates loss of fernandes white matter differentiation involving the left o ccipital temporal lobe, compatible with a left MCA distribution infarction. There is mild sulcal eff acement. Bilateral globes are intact. Retrobulbar fat is preserved. Symmetric attenuation of the optic nerve s and ocular rectus muscles. There is bilateral ethmoid air cell, left frontal sinus, and left maxillary sinus disease. Adequate mastoid air cell aeration. The aerodigestive tract is patent. No mucosal abnormality. There is mass effect upon the posterior right oral cavity due to medial deviation of the right carotid artery. Effacement of the left piriform sinus is likely due to benign apposition of the mucosa. Non-emergent characterization is warranted. Symmetric attenuation of the sternocleidomastoid muscles. There is bilateral parotid gland atrophy. There is bilateral parotid gland fatty replacement. There is symmetric attenuation of the submandib ular glands. There is an enlarged right level V lymph node, measuring 1.2 x 1.0 cm. The lymph node has a round ap pearance and there is loss of fatty hilum. A malignant lymph node cannot be excluded. The upper mediastinum is unremarkable. The visualized lung apices demonstrate chronic change. Cervical spine vertebral body height is maintained. There is no fracture. There is extensive osteop hyte formation throughout the cervical spine. Evaluation of the contents of the central spinal canal and neural foramina is limited by technique. CT ANGIOGRAM: The aortic arch has appropriate enhancement in luminal diameter. RIGHT CAROTID: The right carotid artery origin has appropriate enhancement and luminal diameter. Th e common carotid artery, carotid bifurcation, and internal carotid artery have appropriate enhancemen t and luminal diameter. LEFT CAROTID: The left carotid artery origin has appropriate enhancement and luminal diameter. The left common carotid artery, carotid bifurcation, and internal carotid artery have appropriate enhance ment and luminal diameter. Bilateral cervical vertebral bodies are patent throughout the course in the neck. Vertebral arteries are essentially co-dominant. CT ANGIOGRAM OF THE HEAD: The distal cervical and intracranial internal carotid arteries have symmet lacy enhancement and luminal diameter. There is symmetric enhancement and luminal diameter of the A1 and M1 segments. The proximal A2 segme nts are symmetric. There are decreased posterior left MCA segments at the level of the third and fou rth branch. The right MCA segments are unremarkable. POSTERIOR CIRCULATION: Limited evaluation of both PICA artery origins. Both vertebral body supply a normal caliber basilar artery. The left and right P1 segments have symmetric enhancement and lumina l diameter. CT PERFUSION: The mean transit time images are suboptimal. There is diffuse increased mean transit time of the cerebrum. there is decreased blood flow and blood volume in the left temporal occipital region, corresponding to the area of loss of fernandes white matter differentiation on the post contrast h ead CT. Given the presence of decreased blood volume, a completed infarct is favored. 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 The results of the study were given to Trish, the nurse in the ER, on 07/01/2017 at 2:06 p.m. CODE CR ADDENDUM IMPRESSION: Abnormal right level V lymph node. Effacement of the left piriform sinus. Direct visualization is r ecommended to exclude an underlying lesion. PET imaging may be beneficial to assess for possible met astatic right level V lymph node. The results of the study were discussed with Kelly Ferguson on 07/01/2017 at 4:06 p.m. CODE CR
[2017-07-05] MEDS: DAPAGLIFLOZIN 10 MG PO SCH ×2 (14:43→14:44)
[2017-07-05 15:50] VITALS: BP 118/77; TEMP 97.6
--- NOTE | 2017-07-05 17:34 | DIS ---
DATE OF ADMISSION: 07/01/2017 DATE OF DISCHARGE: 07/05/2017 PRIMARY CARE PHYSICIAN: [facility] call admission. DISCHARGE DISPOSITION: Home with home health. PRIMARY DISCHARGE DIAGNOSES: Acute left middle cerebral artery territory infarct, atrial fibrillatio n with rapid ventricular response, hypertensive urgency resolved, hypokalemia resolved. SECONDARY DISCHARGE DIAGNOSES: Benign enlargement of prostate, diabetes type 2, hypertension, dyslip idemia, gastroesophageal reflux disease. PRIMARY PROCEDURE/OPERATION: None. RADIOLOGICAL INVESTIGATION: CT angiography showed left MCA infarct. There was no carotid stenosis. CT brain negative for any acute process. Cervical spine CT scan negative for any fracture. CT ches t, abdomen, and pelvis negative for any acute process. MRI brain confirmed left MCA territory infarc t. SIGNIFICANT LABORATORY DATA: Hemoglobin 16.8, platelets 101, INR 1.1. Creatinine 0.70. LFT normal. LDL 88. Homocysteine 5.47, syphilis negative. Blood culture negative. DISCHARGE MEDICATIONS: Eliquis 5 mg p.o. b.i.d., aspirin 81 mg p.o. daily, calcium carbonate 1000 mg p.o. at bedtime p.r.n., forxiga 10 mg p.o. daily, Cardizem CD 180 mg p.o. daily, Proscar 5 mg p.o. d aily, gabapentin 100 mg t.i.d., glimepiride 2 mg p.o. daily, lisinopril 5 mg p.o. daily, metformin 10 00 mg p.o. b.i.d., omeprazole 40 mg p.o. daily, Crestor 10 mg p.o. daily, Flomax 0.4 mg p.o. daily. CONTRAINDICATIONS: None. CODE STATUS: FULL CODE. INPATIENT CONSULTANTS: Cardiology, Dr. Elizalde was consulted while in hospital. Neurology, Dr. Marie mathew was consulted while in hospital. TEST RESULTS PENDING ON DISCHARGE: None. ALLERGIES: No known drug allergies. DISCHARGE PLAN: Patient is discharged home with home health for PT, OT, and speech. Patient will fo llow with primary care physician. HOSPITAL COURSE: A 81-year-old male who was admitted by tx. This patient had all of suddenly altere d mental status in the form that he was unable to speak and he had fall. He was brought to the ER vi a air flight. Initially, trauma workup initiated and CT chest and abdomen, CT brain, CT cervical spi ne was negative. Subsequently, CT head perfusion study was done and that showed left MCA territory i nfarct. During this patient, patient was out of window period for TPA. He did not have any motor or sensory symptoms, but only he had expressive and receptive aphasia. He was admitted to stroke floor . Entire stroke team saw this patient including Neurology. On admission, he had hypertensive urgency and atrial fibrillation with RVR, which was controlled with Cardizem drip. On discharge, we prescribed Eliquis for chronic anticoagulation and Cardizem-CD was added. Rest of m edication was continued as per previous. The patient did not qualify for inpatient rehabilitation an d that is why family selected home with home health PT, OT, and speech therapy. The patient is doing very well. The patient is seen and examined at bedside today. Please see my progress note from dimitri martinez for further details.
[2017-07-05] MEDS: Diabetic Tussin 200 MG/10 ML UDCUP PO PRN (17:56)
== END 2017-07-05 18:08 | disposition home health service (06) | DRG 66 ==
LOC: ERS 11:38 → 2SE 15:14 → EDBD 15:14
PROVIDERS: ADMIT Internal Medicine; ATTEND Internal Medicine
DX: I63.412 Cerebral infarction due to embolism of left middle cerebral artery (principal); D69.6 Thrombocytopenia, unspecified; I48.91 Unspecified atrial fibrillation; E11.9 Type 2 diabetes mellitus without complications; R47.01 Aphasia; E87.6 Hypokalemia; E78.5 Hyperlipidemia, unspecified; R29.710 NIHSS score 10; S01.311A Laceration without foreign body of right ear, initial encounter; W18.2XXA Fall in (into) shower or empty bathtub, initial encounter; I10 Essential (primary) hypertension; N40.0 Benign prostatic hyperplasia without lower urinary tract symptoms; I16.0 Hypertensive urgency; K21.9 Gastro-esophageal reflux disease without esophagitis
CPT/HCPCS: 0042T; 36415; 36416; 51701; 70450; 70496; 70498; 70551; 71260; 72125; 74177; 80053; 80061; 82550; 82553; 83090; 83605; 83880; 84484; 85025; 85610; 85730; 86780; 87040; 93005; 93306; 96361; 96374; 96376; G8978-GP-CK; G8979-GP-CI; G8987-GO-CJ; G8988-GO-CI; G9159-GN-CN; G9160-GN-CM; J1650; J7050; S0028

== ENCOUNTER 2017-08-04 12:57 | Inpatient (IN) | payer MEDICARE, MEDICAID ==
[2017-08-04 13:31] LABS: #Lymphocytes 1.3 thou/uL (1.20-3.40); #Monocytes 0.4 thou/uL (0.11-0.59); #Neutrophils 4.2 thou/uL (1.40-6.50); %Basophils 0.2 % (0.0-1.0); %Eosinophils 0.5 % (0.0-10.0); %Lymphocytes 22.3 % (21.0-51.0); %Monocytes 6.3 % (0.0-10.0); %Neutrophils 70.7 % (42.0-75.0); Mean Corpuscular HGB CONC 31.6 g/dL (32.0-36.0); Mean Corpuscular Volume 91.8 fl (80.0-94.0); Mean Platelet Volume 8.5 fL (7.4-10.4); Platelet Count 141 thou/uL (130-400); RBC Distribution Width 12.7 % (11.5-14.5); Red Blood Cell (RBC) Count 5.86 mill/uL (4.70-6.10); White Blood Cell (WBC) Count 5.9 thou/uL (4.8-10.8)
[2017-08-04 13:38] LABS: Prothrombin Time 13.2 SEC (12.0-14.7)
[2017-08-04 13:39] LABS: PTT 32.8 SEC (22.9-36.1)
[2017-08-04 13:41] LABS: ALT (SGPT) 18 U/L (8-55); AST (SGOT) 23 U/L (5-34); Albumin 4.3 g/dL (3.4-4.8); Alkaline Phosphatase 79 U/L (40-150); Anion Gap 16 mmol/L (10-20); BUN (Urea Nitrogen) 11 mg/dL (8.4-25.7); Bilirubin, Total 0.8 mg/dL (0.2-1.2); CK (CPK) 28 U/L (30-200); Calc. Creatinine Clearance 0 mL/min (70-130); Calcium 10.1 mg/dL (7.8-10.44); Carbon Dioxide 28 mmol/L (23-31); Chloride 103 mmol/L (98-107); Estimated GFR-MDRD 89; Globulin 3.5 g/dL (2.4-3.5); Glucose 104 mg/dL (83-110); Potassium 3.8 mmol/L (3.5-5.1); Protein, Total 7.8 g/dL (5.8-8.1); Sodium 143 mmol/L (136-145)
[2017-08-04 13:45] LABS: CKMB 0.9 ng/mL (0-6.6); Troponin I Less than 0.010 ng/mL (< 0.028)
--- NOTE | 2017-08-04 13:50 | CT ---
CT BRAIN WITHOUT CONTRAST: HISTORY: Stroke. Stroke-like symptoms with abnormal speech and abnormal gait. The patient was last seen norm al last night and woke up this morning with these symptoms. COMPARISON: 07/01/2017 TECHNIQUE: Multiple contiguous axial images were obtained in a CT of the brain without contrast. FINDINGS: There is encephalomalacia in the left temporal and parietal lobes, consistent with a prior left MCA d istribution infarction, which is undergoing evolution. There is no evidence of hydrocephalus or intr acranial hemorrhage. No new large confluent infarction is seen. The calvarium and overlying soft tissues are unremarkable. There is opacification of the left maxill tiara sinus. The mastoid air cells are well aerated. IMPRESSION: Evolving remote left middle cerebral artery distribution infarction without acute intracranial abnorm ality. Dr. Velazco notified of the findings at 1:27 p.m. on 08/04/2017. CODE CR POS: [facility]
--- NOTE | 2017-08-04 14:52 | RAD ---
AP VIEW CHEST: Date: 08/04/17 INDICATION: Stroke symptoms. COMPARISON: None. FINDINGS: There is subtle blunting of the left costophrenic angle which may reflect a small left pleural effusi on. There is very patchy air space opacity in the left lower lobe that may reflect component of pneum onia or aspiration. Right lung is clear. Heart size is within normal limits. No acute osseous abnorma lity is evident. IMPRESSION: Left pleural parenchymal opacity may reflect pneumonia with underlying effusion. Aspiration could hav e a similar appearance. Continued radiographic follow-up is recommended. POS: [facility]
[2017-08-04 15:23] LABS: Bilirubin Negative (Negative); Blood, Urine Negative (Negative); Clarity CLEAR (Clear); Glucose, Urine (Dipstick) 500 mg/dL (Negative); Leukocyte Negative (Negative); Nitrite Negative (Negative); Protein, Urine (Dipstick) Negative (Neg-Trace); Urobilinogen 0.2 mg/dL (0.2-1.0)
--- NOTE | 2017-08-04 17:39 | HP ---
DATE OF ADMISSION: 08/04/2017 PRIMARY CARE PHYSICIAN: The patient does not have a primary care physician, city call. CHIEF COMPLAINT: "I felt like something popped in my head and lost my balance and having trouble spe aking." HISTORY OF PRESENT ILLNESS: Mr. Ornelas is a pleasant 81-year-old gentleman who was recently hospita lized at our facility for an acute left middle cerebral artery distribution cerebrovascular accident. At that time, his symptoms were more altered mental status and what sounds like expressive aphasia off and on. He was treated, had a full workup including an echocardiogram, CT angiogram and MRI of t he brain. He also has a history of atrial fibrillation and had been off of anticoagulation. He was placed on Eliquis. His blood pressure was treated and dyslipidemia as well and was released from the hospital. His family says that he had never really got back to normal. He had always had a little bit of difficulty with word finding and some memory problems, but this morning around 9:00, he said christopher kenny felt like something popped in his head and he seemed more off balance. His son who is at the [facility] says he could not really remember things as well. He says it looked like he had the idea what he wanted to say and his head, but he could not quite get it out and his son also says that he looks lik e he was having difficulty swallowing pills. He says that he seemed like he was having trouble getti ng the pills down, was having to raise his head and neck in order for the pills to go down. For this reason, they called an ambulance and when the ambulance arrived, they noticed that the blood pressminor kenny was elevated and said that he should be taken to the hospital to get checked out to make sure he haines s not had a stroke. Currently, the patient says the headache is better. He says that it had been mo re on the left side and when he was turning his head to the left. Other than he says he has difficul ty finding his words or speaking, he has no specific complaints. He denies any focal weakness in his arms and there was no mention of having any seizures. His daughter says that he has had some troubl e with vision out of his right eye after he fell. REVIEW OF SYSTEMS: Constitutional: No mention of any fevers, chills, no night sweats, no weight los s. HEENT: He has had the headache as previously mentioned, more on the left side. He had the poppi ng sensation and then after that, it got better. Some decrease in visual acuity in the right eye. N o sore throat, no rhinorrhea, no neck pain. Pulmonary: No hemoptysis, no cough, no wheezing. Cardi ovascular: He denies any chest pain or shortness of breath, no PND, no orthopnea. Gastrointestinal: No abdominal pain, no nausea, no vomiting, no change in bowels. Genitourinary: No urinary frequen cy, hematuria, no hesitancy. Neurologic: As in the history of present illness. Musculoskeletal: N o muscle pain, weakness or joint pains. Skin and Integument: No skin changes. No rash. Psychiatric: No symptoms of anxiety or depression. PAST MEDICAL HISTORY: Significant for hypertension, diabetes mellitus, atrial fibrillation, BPH, hyp erlipidemia, and cerebrovascular accident recently. PAST SURGICAL HISTORY: He has had a left hip replacement. FAMILY HISTORY: Significant for heart disease. SOCIAL HISTORY: He is a nonsmoker. He used to drink occasionally, but does not drink now. He lives with his . CODE STATUS: FULL CODE. ALLERGIES: No known drug allergies. MEDICATIONS: Gabapentin 100 mg 3 times a day, lisinopril 5 mg daily, finasteride 5 mg daily, omepraz ole 40 mg once a day, metformin 500 mg twice a day, Flomax 0.4 mg daily, glimepiride 10 mg daily, Far xiga 10 mg daily, Crestor 10 mg once a day, aspirin 81 mg daily, Cartia XT 180 mg once daily and Eliq uis 5 mg twice daily. PHYSICAL EXAMINATION: VITAL SIGNS: Blood pressure is 155/97, heart rate 108, respiratory rate is 16, temperature is 98.4. HEENT: Pupils are equal, round, and reactive. Extraocular muscles are intact. His sclerae are anic teric. Throat: There is no erythema, no exudates. NECK: No adenopathy, no bruits. LUNGS: Clear to auscultation, no wheezing, no rales. CARDIOVASCULAR: His heart rate is slightly irregular. I was unable to appreciate any murmurs or rub s. ABDOMEN: Soft, it is nontender, nondistended. Positive for bowel sounds. There is no rebound or gu arding. EXTREMITIES: There is no clubbing, cyanosis, no edema. NEUROLOGIC: Cranial nerves II-XII are grossly intact. Muscle strength is 5/5 in both his upper and lower extremities. SKIN/INTEGUMENT: There is no edema or any rash. SIGNIFICANT LABORATORY AND X-RAY FINDINGS: EKG is in atrial fibrillation, the heart rate is 112 and he had some nonspecific ST wave changes. LABORATORY RESULTS: Sodium was 143, potassium 3.8, chloride is 103, CO2 is 28, BUN of 11, creatinine 0.83, glucose is 104. White blood cell count is 5.9, hemoglobin 17, hematocrit is 53.8, platelet co unt is 141. INR is 1.0. Urinalysis is pending. CT scan of the brain showed an evolving remote left MCA distribution infarct. There was no acute abnormality. Chest x-ray: There is a questionable le ft pleural opacity. ASSESSMENT AND PLAN: This is a 81-year-old gentleman who presented with a sudden onset of headache a s well as sounds like worsening aphasia and some dysphasia symptoms. I suspect this could be some st uttering like symptoms from his previous cerebrovascular accident. He will be placed in observation on the Stroke Unit. We will consult Neurology for further recommendations. At this time, he appears to be on optimal medical treatment for cerebrovascular accident. However, we will have the neurolog ist to review his medications to see if any changes need be made. I will of course monitor his blood pressure to see if his blood pressure is optimally controlled as well as checking his lipid panel to see if his lipids are within the recommended parameters and Dr. Dye had been contacted from the emergency room and is recommended obtaining an EEG and possibly placing him on stroke prophylaxis. W ith regards to the changes on the chest x-ray, he does not give any symptoms suggestive of aspiration such as fever or cough. However, should these develop then we can likely treat him for aspiration p neumonia. We will also be consulting speech therapy to do a swallow evaluation.
[2017-08-04] MEDS ORDERED: Dextrose 50% Abboject 50 ML SYRINGE SLOW IVP PRN (18:30)
[2017-08-04] MEDS ORDERED: Ondansetron HCl/PF 4 MG/2 ML Vial IVP PRN (18:30)
[2017-08-04] MEDS ORDERED: HumaLOG 300 UNITS/3 ML VIAL SC PRN ×2 (18:30)
[2017-08-04] MEDS ORDERED: Dextrose 5% in Water 1,000 ML IV PRN (18:30)
[2017-08-04] MEDS ORDERED: hydrALAZINE 20 MG/ML VIAL SLOW IVP PRN (18:30)
[2017-08-04] MEDS ORDERED: Lorazepam 2 MG/ML VIAL SLOW IVP PRN (18:30)
[2017-08-04] MEDS: Sodium Chloride 0.9% 1,000 ML IV SCH (19:34)
[2017-08-04 19:41] VITALS: BMI 23.8
[2017-08-04] MEDS: Gabapentin 100 MG CAP PO SCH (21:04)
[2017-08-04] MEDS: Rosuvastatin 10 MG TAB PO SCH (21:04)
[2017-08-04] MEDS: Famotidine/PF 20 mg/2ml Vial SLOW IVP SCH (21:04)
[2017-08-04] MEDS: Apixaban 5 MG TAB PO SCH (21:04)
[2017-08-05 05:25] LABS: #Eosinphils 0.1 thou/uL (0.0-0.7); #Lymphocytes 1.4 thou/uL (1.20-3.40); #Monocytes 0.6 thou/uL (0.11-0.59); #Neutrophils 2.8 thou/uL (1.40-6.50); %Basophils 0.9 % (0.0-1.0); %Eosinophils 1.2 % (0.0-10.0); %Monocytes 11.7 % (0.0-10.0); %Neutrophils 57.2 % (42.0-75.0); Hemoglobin 15.7 g/dL (14.0-18.0); Mean Corpuscular HGB CONC 32.1 g/dL (32.0-36.0); Mean Corpuscular Hemoglobin 29.5 pg (27.0-31.0); Mean Platelet Volume 8.4 fL (7.4-10.4); Platelet Count 141 thou/uL (130-400); RBC Distribution Width 12.7 % (11.5-14.5); Red Blood Cell (RBC) Count 5.31 mill/uL (4.70-6.10)
[2017-08-05 05:46] LABS: Anion Gap 10 mmol/L (10-20); BUN (Urea Nitrogen) 12 mg/dL (8.4-25.7); Calc. Creatinine Clearance 84 mL/min (70-130); Calcium 9.2 mg/dL (7.8-10.44); Carbon Dioxide 29 mmol/L (23-31); Cardiac Risk 3.4 (Less than 4.5); Chloride 106 mmol/L (98-107); Cholesterol 130 mg/dl (< 200 Desired); Estimated GFR-MDRD Greater than 90; Glucose 83 mg/dL (83-110); HDL Cholesterol 38 mg/dL (>60 Neg Risk); LDL Cholesterol, Calculated 64 mg/dL; Potassium 4.2 mmol/L (3.5-5.1); Sodium 141 mmol/L (136-145); Triglycerides 139 mg/dL (Less than 150)
--- NOTE | 2017-08-05 09:42 | PDOC.PN ---
- Subjective Encounter Start Date: 08/05/17 Encounter Start Time: 09:41 Subjective: nsg notes rev, susan ovn, no new c/o, son @ bedside providing arabic -: translation. electrical manufacturing technician and speech therapy also at bedside. pt no new c/o -: has been having episodes of issues with comprehension, expressive aphasia - Objective Resuscitation Status: Resuscitation Status FULL:Full Resuscitation Vital Signs & Weight: Vital Signs (12 hours) Temp Pulse Resp BP Pulse Ox 08/05/17 07:49 99.0 F 100 16 143/87 H 96 08/05/17 04:30 97.4 F L 99 18 136/84 99 08/04/17 23:30 97.5 F L 88 14 120/76 96 Weight Weight 176 lb Result Diagrams: 08/05/17 05:07 08/05/17 05:07 Additional Labs: Accuchecks 08/05/17 08/04/17 05:51 21:20 POC Glucose 87 124 H Phys Exam - Physical Examination Constitutional: NAD HEENT: PERRLA, moist MMs Respiratory: no wheezing, no rales, no rhonchi, clear to auscultation bilateral Cardiovascular: RRR, no significant murmur, no rub Gastrointestinal: soft, non-tender, no distention, positive bowel sounds Musculoskeletal: no edema, pulses present Dx/Plan (1) Acute ischemic left middle cerebral artery (MCA) stroke Code(s): I63.512 - CEREB INFRC D/T UNSP OCCLS OR STENOS OF LEFT MID CEREB ART Status: Acute Comment: suspected embolic (2) Atrial fibrillation with RVR Code(s): I48.91 - UNSPECIFIED ATRIAL FIBRILLATION Status: Acute Comment: rate controlled on cardizem cd and now on elliquis (3) Diabetes type 2, controlled Code(s): E11.9 - TYPE 2 DIABETES MELLITUS WITHOUT COMPLICATIONS Status: Chronic Comment: controlled (4) Dyslipidemia Code(s): E78.5 - HYPERLIPIDEMIA, UNSPECIFIED Status: Chronic Comment: on crestor (5) Hypertension Code(s): I10 - ESSENTIAL (PRIMARY) HYPERTENSION Status: Chronic Comment: controlled - Plan cont current plan of care, plan discussed w/ family, PT/OT, speech therapy, out of bed/ambulate * Patient with recent right MCA stroke p/w recurrent issues with verbal communication * continue with ST * EEG to eval for complications from stroke * apprec neurology eval - concern for evolving MCA stroke hypertension, closely monitor, stable hx afib with RVR, continue to monitor, on tele * continue home medications diet: as per speech recs activity: OOB with PT/OT as tera Review of Systems - Medications/Allergies Allergies/Adverse Reactions: Allergies Allergy/AdvReac Type Severity Reaction Status Date / Time No Known Allergies Allergy Verified 08/05/17 06:01 Medications: Current Medications Apixaban (Eliquis) 5 mg PO BID [facility] Last Admin: 08/04/17 21:04 Dose: 5 mg Aspirin (Aspirin Chewable) 81 mg PO DAILY [facility] Dextrose/Water (Dextrose 50%) 25 gm SLOW IVP PRN PRN PRN Reason: Hypoglycemia Diltiazem HCl (Cardizem Cd) 180 mg PO DAILY [facility] Famotidine (Pepcid) 20 mg SLOW IVP Q12HR [facility] Last Admin: 08/04/17 21:04 Dose: 20 mg Finasteride (Proscar) 5 mg PO DAILY [facility] Gabapentin (Neurontin) 100 mg PO TID [facility] Last Admin: 08/04/17 21:04 Dose: 100 mg Glimepiride (Amaryl) 2 mg PO QAM-WM [facility] Glucagon (Glucagon) 1 mg IM PRN PRN PRN Reason: Hypoglycemia Hydralazine HCl (Apresoline) 10 mg SLOW IVP Q4H PRN PRN Reason: Systolic BP > 180 Dextrose/Water (D5w) 1,000 mls @ 0 mls/hr IV .Q0M PRN; As Directed PRN Reason: Hypoglycemia Sodium Chloride (Normal Saline 0.9%) 1,000 mls @ 75 mls/hr IV .[id number] [facility] Last Admin: 08/04/17 19:34 Dose: 1,000 mls Insulin Human Lispro (Humalog) 0 units SC .MILD SLIDING SCALE PRN PRN Reason: Mild Correctional Scale Insulin Human Lispro (Humalog) 0 units SC .BEDTIME SLIDING SC PRN PRN Reason: Bedtime Correctional Scale Lisinopril (Zestril) 5 mg PO DAILY [facility] Lorazepam (Ativan) 0.5 mg SLOW IVP Q4H PRN PRN Reason: Anxiety/Agitation Ondansetron HCl (Zofran) 4 mg IVP Q6H PRN PRN Reason: Nausea/Vomiting Rosuvastatin Calcium (Crestor) 10 mg PO [facility] Last Admin: 08/04/17 21:04 Dose: 10 mg Tamsulosin HCl (Flomax) 0.4 mg PO DAILY [facility]
[2017-08-05] MEDS: Apixaban 5 MG TAB PO SCH ×2 (10:52→21:13)
[2017-08-05] MEDS: Glimepiride 2 MG TAB PO SCH (10:52)
[2017-08-05] MEDS: Lisinopril 5 MG TAB PO SCH (10:53)
[2017-08-05] MEDS: Finasteride 5 MG TAB PO SCH (10:53)
[2017-08-05] MEDS: Sodium Chloride 0.9% 1,000 ML IV SCH ×2 (10:54→21:13)
[2017-08-05] MEDS: Famotidine/PF 20 mg/2ml Vial SLOW IVP SCH ×2 (10:54→21:13)
[2017-08-05] MEDS: Gabapentin 100 MG CAP PO SCH ×3 (10:54→21:13)
[2017-08-05] MEDS: Tamsulosin HCl 0.4 MG CAP PO SCH (10:55)
--- NOTE | 2017-08-05 18:52 | CON ---
DATE OF CONSULTATION: 08/05/2017 REFERRING PROVIDER: Mike Hernández M.D. REASON FOR CONSULTATION: Worsening expressive aphasia. HISTORY OF PRESENT ILLNESS: Mr. Ornelas is a pleasant 81-year-old male , who has been consulted for evaluation of worsening expressive aphasia. History is obtained from the patient's daughter who was present at bedside, who acts as a deflash and wash operator as the patient is a non-Kazakh speaking . Apparently, the patient was admitted in 06/2017 with an acute event of expressive aphasia. He was found to have acute left middle cerebral artery distribution ischemic infarct. He had an extensive workup done at that time and was discharged home on Eliquis 5 mg b.i.d. and aspirin 81 mg daily for secondary stroke prevention. Daughter reports that the patient has been doing well until yesterday when he had sudden onset of difficulty with getting his words out and pain onto the right frontal orbital region. This pain was nonradiating and throbbing in quality. After the pain started he started noticed pain moving down to the right side of the neck and suddenly feeling a pop-like sensation and then the headache improved after that episode. At that time, she also noted that he was started having increasing difficulty with getting expressing himself. This has since been improving. He has not had any complaint of any headache, chest pain, palpitation, numbness, tingling or weakness. He denies any dysarthria with this episode. PAST MEDICAL HISTORY: Significant for hypertension, diabetes, atrial fibrillation, BPH, hyperlipidemia, and recent history of stroke resulting in expressive aphasia. PAST SURGICAL HISTORY: Significant for left hip replacement. FAMILY HISTORY: Significant for heart disease. SOCIAL HISTORY: He is a nonsmoker. He drinks alcohol on occasions. He denies illicit drug use. CURRENT MEDICATIONS: Please review MAR. ALLERGIES: No known drug allergies. REVIEW OF SYSTEMS: As mentioned above in the HPI, otherwise negative. PHYSICAL EXAMINATION: VITAL SIGNS: Blood pressure 132/76, pulse of 93, temperature of 97.8, respirations of 16, O2 sats of 95% on room air. GENERAL: Well-developed, well-nourished male, in no apparent distress. RESPIRATORY: Clear to auscultation bilaterally. CARDIOVASCULAR: Regular rate and rhythm. NEUROLOGIC: Mental status: The patient is awake, alert, oriented x3. Speech and language difficult to decipher, but based on the conversation with the daughter, he was fully able to comprehend and articulate his words properly. Cranial nerves: Pupils are 3 mm and reactive. Visual ward are intact. Extraocular muscles are intact. No nystagmus is noted. Face is symmetric. Tongue and uvula are midline. Motor exam showed normal tone and bulk with a 5/ 5 strength in both upper and lower extremities. Sensory: Sensation is intact and symmetric. Deep tendon reflexes 2+ reflexes in both upper and lower extremities. Babinski: Plantar responses flexion bilaterally. Coordination is intact to [id number] and finger tapping bilaterally. LABORATORY DATA: Reviewed, which included CBC, coag panel, CMP, lipid profile, and urinalysis, which is significant for glucose of 143, total cholesterol of 130, LDL of 64, HDL of 38, and triglycerides of 139, otherwise unremarkable. IMAGING STUDIES: CT head without contrast was reviewed, which showed evolving left middle cerebral artery ischemic infarct. No acute intracranial abnormality identified. IMPRESSION: 1. Acute worsening of expressive aphasia, now resolved. 2. Headache. 3. Prior left middle cerebral artery distribution ischemic infarct. ASSESSMENT AND PLAN: Mr. Ornelas is a pleasant 81-year-old male, who recently was admitted with acute left middle cerebral artery distribution ischemic infarct. Recently, he had developed a headache followed by worsening expressive aphasia. On my neurological exam, I did not appreciate any new acute neurological changes. In my opinion, he probably may have had deconditioning of his prior stroke, which prompted the recent events. I would recommend obtaining MRI brain without contrast. If that is normal, the patient is okay to be discharged to home. Thank you for consultation. MARYLOU
[2017-08-05] MEDS: Rosuvastatin 10 MG TAB PO SCH (21:13)
[2017-08-06] MEDS: Sodium Chloride 0.9% 1,000 ML IV SCH (03:34)
[2017-08-06] MEDS: Gabapentin 100 MG CAP PO SCH (08:22)
[2017-08-06] MEDS: Finasteride 5 MG TAB PO SCH (08:22)
[2017-08-06] MEDS: Tamsulosin HCl 0.4 MG CAP PO SCH (08:22)
[2017-08-06] MEDS: Apixaban 5 MG TAB PO SCH (08:22)
[2017-08-06] MEDS: Lisinopril 5 MG TAB PO SCH (08:22)
[2017-08-06] MEDS: Glimepiride 2 MG TAB PO SCH (08:22)
[2017-08-06] MEDS: Famotidine/PF 20 mg/2ml Vial SLOW IVP SCH (08:24)
[2017-08-06 11:42] VITALS: BP 124/77; TEMP 98.4
--- NOTE | 2017-08-06 11:42 | MRI ---
MRI BRAIN NONCONTRAST: HISTORY: CVA. COMPARISON: 07/02/17. FINDINGS: Encephalomalacia and cortical necrosis are now developing at the posterior left middle cerebral arter y distribution in the temporal and frontal lobes. No acute intracranial hemorrhage or infarct are ap parent. No restricted diffusion remains. The ventricles appear normal in size, shape, and position. There is no mass effect or shift of midline structures. Mucosal opacification of the left maxillar y sinus is similar in appearance to the prior study. IMPRESSION: 1. Interval evolution of the left middle cerebral artery infarct. No new abnormalities are evident. 2. Chronic left maxillary sinusitis. POS: [facility]
--- NOTE | 2017-08-06 17:35 | EKG ---
Test Reason : STROKE LIKE SYMPTOMS Blood Pressure : / mmHG Vent. Rate : 112 BPM Atrial Rate : 100 BPM P-R Int : 000 ms QRS Dur : 092 ms QT Int : 340 ms P-R-T Axes : 000 044 -10 degrees QTc Int : 464 ms Atrial fibrillation with rapid ventricular response Nonspecific ST abnormality Abnormal ECG Confirmed by VALERY ENRIQUE D.O. ([id number]), fashion editor BOBBY [employer]ATS ([id number]) on 08/06/2017 5:35:22 PM Referred By: KLAUS Confirmed By:VALERY ENRIQUE D.O.
--- NOTE | 2017-08-06 21:10 | DIS ---
DISCHARGE DATE: 08/06/2017 DISCHARGE DIAGNOSIS: Evolving left middle cerebral artery stroke. BRIEF SUMMARY OF HOSPITAL COURSE: A 81-year-old male who was recently diagnosed with a left middle c erebral arterial stroke with symptoms including slurred speech, difficulty with word finding and comp rehension. He was brought into the hospital for recurrent symptoms after a period of improvement whi le at home. Please see the original history and physical for full details. During this hospitalizat ion, patient was seen by Speech Therapy and at the time of discharge has been cleared, back to home w ith a diet. He has also been seen by Neurology in consultation during this hospitalization as well a nd undergone an MRI, which demonstrates an evolving stroke, but no new conversion, hemorrhage, or new stroke. Remainder of chronic medical issues was stable during hospitalization. CONSULTATION: Neurology, Dr. Levin. MEDICATION RECONCILIATION: Please see the EMR for full details, patient will continue on his entire home regimen. One time refill prescriptions were given for the patient, Eliquis and Cardizem. DISCHARGE INSTRUCTIONS: Patient is asked to follow up closely with his outpatient team including his primary care provider in the next week and with Neurology in the next 2 to 4 weeks as well. Patient 's daughter is at bedside and able to complete teach back for the patient as well. Thank you for asking me to care for the patient. Greater than 30 minutes spent coordinating discharge for the patient.
== END 2017-08-06 13:52 | disposition home health service (06) | DRG 66 ==
LOC: ERS 12:57 → ERHOLD 15:27 → 2SE 18:21
PROVIDERS: ADMIT Internal Medicine; ATTEND Internal Medicine
DX: I63.412 Cerebral infarction due to embolism of left middle cerebral artery (principal); I48.91 Unspecified atrial fibrillation; E11.9 Type 2 diabetes mellitus without complications; R47.01 Aphasia; I10 Essential (primary) hypertension; E78.5 Hyperlipidemia, unspecified; N40.0 Benign prostatic hyperplasia without lower urinary tract symptoms
CPT/HCPCS: 36415; 36416; 70450; 70551; 71045; 80048; 80053; 80061; 81003; 82550; 82553; 84484; 85025; 85610; 85730; 86850; 86900; 86901; 93005; 95816; 95819; G8978-GP-CJ; G8979-GP-CJ; G8980-GP-CJ; G8987-GO-CI; G8988-GO-CI; G8989-GO-CI; G8996-GN-CK; G8997-GN-CJ; S0028